=== PATIENT | male | born 1995 | race Caucasian/White ===

== ENCOUNTER 2020-12-02 16:17 | Inpatient (IN) | payer MEDICAID, SELFPAY ==
--- NOTE | ~2020-12-02 | CT_ITS ---
EXAMINATIONS: CT HEAD WITHOUT CONTRAST AND CT CERVICAL SPINE WITHOUT CONTRAST CLINICAL INFORMATION: Fall, seizure. COMPARISON: None. TECHNIQUE: Contiguous helical images of the brain were obtained without IV contrast. Contiguous helical images of the cervical spine were obtained without IV contrast. Multiplanar reconstructions were performed. DLP: 981 mGy-cm. FINDINGS: There are no pathologic extra-axial fluid collections. The lateral, third, fourth ventricles are nondilated and concordant with the appearance of the sulci. There is no evidence for acute intraparenchymal hemorrhage or infarct. There is neither mass nor mass effect. There is no shift of midline structures. The paranasal sinuses and mastoid air cells are clear. There are no osseous lesions. The cervical vertebra are in normal alignment. Disc heights and vertebral heights are well-preserved. There are no fractures. There is no prevertebral soft tissue swelling. There is no cervical lymphadenopathy. The visualized lung apices are clear. CT/CT cervical spine wo con IMPRESSION: No evidence for acute intracranial injury. No evidence for acute injury to the cervical spine. Automated exposure control (Care Dose) Adjustment of the mA and/or kv according to patient size (this includes techniques or standardized protocols for targeted exams where dose is matched to indication / reason for exam; i.e. extremities or head).
--- NOTE | ~2020-12-02 | CT_ITS ---
EXAMINATIONS: CT HEAD WITHOUT CONTRAST AND CT CERVICAL SPINE WITHOUT CONTRAST CLINICAL INFORMATION: Fall, seizure. COMPARISON: None. TECHNIQUE: Contiguous helical images of the brain were obtained without IV contrast. Contiguous helical images of the cervical spine were obtained without IV contrast. Multiplanar reconstructions were performed. DLP: 981 mGy-cm. FINDINGS: There are no pathologic extra-axial fluid collections. The lateral, third, fourth ventricles are nondilated and concordant with the appearance of the sulci. There is no evidence for acute intraparenchymal hemorrhage or infarct. There is neither mass nor mass effect. There is no shift of midline structures. The paranasal sinuses and mastoid air cells are clear. There are no osseous lesions. The cervical vertebra are in normal alignment. Disc heights and vertebral heights are well-preserved. There are no fractures. There is no prevertebral soft tissue swelling. There is no cervical lymphadenopathy. The visualized lung apices are clear. CT/CT head/brain wo con IMPRESSION: No evidence for acute intracranial injury. No evidence for acute injury to the cervical spine. Automated exposure control (Care Dose) Adjustment of the mA and/or kv according to patient size (this includes techniques or standardized protocols for targeted exams where dose is matched to indication / reason for exam; i.e. extremities or head).
--- NOTE | 2020-12-02 16:29 | ED.ALCOHOL ---
HPI - Alcohol General Chief Complaint: Seizure Stated Complaint: dt from etoh withdrawl Time Seen by Provider: 12/02/20 16:29 Source: patient and EMS Mode of arrival: EMS Limitations: no limitations History of Present Illness HPI narrative: 25 yo male who drinks a significant amount of ETOH 1-2 pints of vodka daily who has had withdrawal seizures in the past comes in after witnessed GTC seizure lasting 45 minutes with head strike and postictal state he wants to go to detox tomorrow so he stopped drinking yesterday complaint: alcohol withdrawal (seizure) Last drink: Days (ago) (1) Chronic alcohol use: Yes Previous visits for alcohol intoxication: Yes Recent trauma: Yes Associated symptoms: nausea and tremors Treatments prior to arrival: cervical collar Related Data Allergies Allergy/AdvReac Type Severity Reaction Status Date / Time No Known Allergies Allergy Verified 12/02/20 16:38 Review of Systems Review of Systems: Constitutional : No Weight loss, No Fever, No Chills, No Fatigue, No Malaise ENT/Mouth : No sore throat, No Rhinorrhea Eyes: No Eye Pain, No Swelling, No Redness Cardiovascular : No Chest Pain, No SOB, No Dyspnea on Exertion, No Orthopnea, No Edema, No Palpitations Respiratory : No Cough, No Sputum, No Wheezing Gastrointestinal : No Nausea, No Vomiting, No Diarrhea, No Constipation, No abdominal Pain, No Hematochezia, No Melena Genitourinary : No Dysuria, No Urinary Frequency, No Hematuria, Musculoskeletal : No joint pain, No Myalgias, No Joint Swelling Skin : No Skin Lesions, Pos skin abrasion Neuro : No Weakness, No Numbness, No Dizziness, No Headache, pos seizure Psych : pos Anxiety/Panic, No Depression Heme/Lymph: No Bruising, No Bleeding,No Lymphadenopathy Endocrine : No Polyuria, No Polydipsia All other systems reviewed and are negative PMFSH Past Medical History Attestation statement: The following information was validated with the patient. Medical History H/O alcohol abuse Withdrawal seizures Social History Social History (Updated 12/02/20 @ 16:43 by Stacia Burgess DO) Alcohol intake: current Alcohol intake frequency: 3 or more drinks per day Alcohol type: hard liquor Smoking Status: Never smoker Use of substances other than those prescribed or required for medical reasons: No Advance Directives: No Advance Directives Information Provided: No Physical Exam Vital Signs: Vital Signs: Last Vital Signs Temp 98.0 F 12/02/20 20:00 Pulse 75 12/02/20 20:00 Resp 16 12/02/20 20:00 BP 105/67 12/02/20 20:00 Pulse Ox 98 12/02/20 20:00 Body Mass Index 20.0 Appearance: Alert. Oriented X3. Anxious mild acute distress. Eyes: Pupils equal, round and reactive to light. ENT: Abrasions bilateral sides of tongue Neck: Normal inspection. Neck supple. in collar CVS: tachycardic heart rate and rhythm. Pulses normal. Respiratory: No respiratory distress. Breath sounds normal. Abdomen: Soft and nontender. Skin: Skin warm and dry. Normal skin color. Normal skin turgor. superficial abrasions to L hand Extremities: No lower extremity edema. No calf ttp Neuro: Oriented X 3. No motor deficit. No sensory deficit. positive tremors MDM - Alcohol MDM Narrative Medical decision making narrative: 25 yo male with hx of significant ETOH abuse and withdrawal seizures comes in after withdrawal seizure prior to arrival with headstrike will need labs, IV ativan 2mg STAT, start phenobarb protocol, hydrate, obtain electrolytes, I suspect the patient will not want to stay in the hospital but will attempt to try to admit him given ETOH withdrawal and seizure risks Lab Data Result diagrams: 12/02/20 18:11 12/02/20 18:11 Labs: Lab Results 12/02/20 12/02/20 12/02/20 Range/Units 18:11 18:11 18:11 WBC 7.7 (4.8-10.8) X10*3/uL RBC 4.41 L (4.60-5.80) X10*6/uL Hgb 15.4 (14.0-18.0) g/dl Hct 43.8 (42-52) % MCV 99.3 H (80-98) fL MCH 34.9 H (27.0-33.0) pg MCHC 35.2 (31.0-36.0) g/dl RDW 11.3 (11.0-16.0) % Plt Count 61 L (160-400) X10*3/uL MPV 9.8 (9.4-12.4) fL Immature Gran % (Auto) 0.4 (0.0-0.4) % Neut % (Auto) 82.7 H (45-73) % Lymph % (Auto) 6.9 L (20-40) % Alfalfa % (Auto) 8.8 (2-11) % Eos % (Auto) 0.0 (0-4) % Baso % (Auto) 1.2 (0-2) % Lymph # (Auto) 0.5 L (1.2-4.9) X10*3/uL [place] # (Auto) 0.7 (0.1-1.2) X10*3/uL Eos # (Auto) 0.0 (0.0-0.4) X10*3/uL Baso # (Auto) 0.1 (0.0-0.2) X10*3/uL Abs Immat Gran (auto) 0.03 (0.00-0.03) X10*3/uL Absolute Neuts (auto) 6.4 (2.0-8.3) X10*3/uL Absolute Nucleated RBC 0.000 (0.0-0.012) X10*3/uL Nucleated RBC % (auto) 0.0 (0.0-0.2) /100WBC Smear Tech's Comments VERIFIED PT 10.8 (10.8-13.0) SEC INR 0.9 (0.9-1.1) APTT 28.2 (24.1-38.0) SEC Sodium 136 (135-145) mmol/L Potassium 4.1 (3.3-5.1) mmol/L Chloride 104 (96-108) mmol/L Carbon Dioxide 20 L (22-29) mmol/L Anion Gap 16 (12-20) BUN 10 (9-16) mg/dL Creatinine 0.73 (0.5-1.4) mg/dL Estim Creat Clear Calc 138.9 Estimated GFR > 60 Random Glucose 114 (60-115) mg/dL Calcium 8.6 (8.4-10.2) mg/dL Magnesium (1.6-2.6) mg/dL Total Bilirubin (0.0-1.0) mg/dL Direct Bilirubin (0.0-0.5) mg/dL AST (5-37) U/L ALT (0-40) U/L Alkaline Phosphatase (39-117) U/L Total Creatine Kinase 405 H (38-174) U/L Total Protein (6.5-8.0) g/dL Albumin (3.5-5.0) g/dL Lipase (8-78) U/L Ethyl Alcohol mg/dL 12/02/20 12/02/20 Range/Units 18:11 18:11 WBC (4.8-10.8) X10*3/uL RBC (4.60-5.80) X10*6/uL Hgb (14.0-18.0) g/dl Hct (42-52) % MCV (80-98) fL MCH (27.0-33.0) pg MCHC (31.0-36.0) g/dl RDW (11.0-16.0) % Plt Count (160-400) X10*3/uL MPV (9.4-12.4) fL Immature Gran % (Auto) (0.0-0.4) % Neut % (Auto) (45-73) % Lymph % (Auto) (20-40) % [place] % (Auto) (2-11) % Eos % (Auto) (0-4) % Baso % (Auto) (0-2) % Lymph # (Auto) (1.2-4.9) X10*3/uL [place] # (Auto) (0.1-1.2) X10*3/uL Eos # (Auto) (0.0-0.4) X10*3/uL Baso # (Auto) (0.0-0.2) X10*3/uL Abs Immat Gran (auto) (0.00-0.03) X10*3/uL Absolute Neuts (auto) (2.0-8.3) X10*3/uL Absolute Nucleated RBC (0.0-0.012) X10*3/uL Nucleated RBC % (auto) (0.0-0.2) /100WBC Smear Tech's Comments PT (10.8-13.0) SEC INR (0.9-1.1) APTT (24.1-38.0) SEC Sodium (135-145) mmol/L Potassium (3.3-5.1) mmol/L Chloride (96-108) mmol/L Carbon Dioxide (22-29) mmol/L Anion Gap (12-20) BUN (9-16) mg/dL Creatinine (0.5-1.4) mg/dL Estim Creat Clear Calc Estimated GFR Random Glucose (60-115) mg/dL Calcium (8.4-10.2) mg/dL Magnesium 2.7 H (1.6-2.6) mg/dL Total Bilirubin 1.1 H (0.0-1.0) mg/dL Direct Bilirubin 0.4 (0.0-0.5) mg/dL AST 143 H (5-37) U/L ALT 74 H (0-40) U/L Alkaline Phosphatase 69 (39-117) U/L Total Creatine Kinase (38-174) U/L Total Protein 6.9 (6.5-8.0) g/dL Albumin 4.5 (3.5-5.0) g/dL Lipase 42 (8-78) U/L Ethyl Alcohol < 10 mg/dL ECG Data Attestation: I personally reviewed and interpreted this ECG as follows: ECG interpretation date: 12/02/20 ECG interpretation time: 18:16 Interpretation: Rate: 74 Rhythm : NSR [place]: normal Normal P waves. Normal HANS. Normal QRS complex. ST T wave : normal no acute ischemia qTC: normal prior studies: no acute ischemia The study has been interpreted contemporaneously by me. . Critical Care Time Critical Care Time Critical Care Time: Yes Total Critical Care Time: 30 Attestation: IV ativan 2mg, IVF, start of phenobarb protocol for acute ETOH withdrawal to prevent further seizures I attest to this time spent taking care of the patient Discharge Plan Discharge Clinical Impression: Alcohol withdrawal seizure Qualifiers: Complication of substance-induced condition: with unspecified complication Qualified Code(s): F10.239 - Alcohol dependence with withdrawal, unspecified
[2020-12-02 16:32] VITALS: BP 131/89; BP 140/60; PULSE 102; PULSE 120; RESP 18; TEMP 36.6; O2SAT 97
--- NOTE | 2020-12-02 16:38 | ECG_ITS ---
Test Reason : SEIZURE Blood Pressure : / mmHG Vent. Rate : 074 BPM Atrial Rate : 074 BPM P-R Int : 092 ms QRS Dur : 088 ms QT Int : 392 ms P-R-T Axes : 033 071 056 degrees QTc Int : 435 ms Sinus rhythm with short [place] Otherwise normal ECG When compared with ECG of 10-OCT-2014 15:01, Vent. rate has decreased BY 66 BPM Referred By: Stacia Burgess Electronically Signed By:Chandan Brownlee
[2020-12-02] MEDS: Magnesium Sulfate/H2O 2 GM/50 ML PIGGYBACK IV (17:05)
[2020-12-02] MEDS: 0.9 % Sodium Chloride 1,000 ML 999 ML IVCONT (17:05)
[2020-12-02] MEDS: LORazepam 2 MG/ML VIAL IVPUSH (17:05)
[2020-12-02] MEDS: PHENobarbitaL sodium 130 MG/ML VIAL 254 MG IM (17:21)
[2020-12-02 17:26] VITALS: BP 113/72; PULSE 73; RESP 14; O2SAT 97
--- NOTE | 2020-12-02 17:42 | MHC.RECOVSUP ---
Recovery Support note: Patient is a 25 year old Greek speaking male who presented to [facility] ED after having a seizure due to alcohol withdrawal. This justowriter operator met with patient to discuss substance use and treatment options. Patient reports he was planning on going to [facility] today however he was unable to make calls or get himself there due to withdrawal symptoms. Patient had planned to go tomorrow however ended up here. Patient reports he only plans to spend one night in the hospital, stating that his belongings are at an acquaintances house and that he has to go and get them. Patient reports he is staying in [place] and with relatives in the [place] area. Discussed multiple pathways to recovery with patient including AA, [facility] and MAT. Patient reports interest in getting on Antabuse after treatment. Discussed with patient that there are other medications that can help to reduce cravings and that he may benefit from those as well. Provided patient with information on the [facility], [facility], AA and [facility]. Provided patient with this justowriter operator's contact info in the event that patient has any questions about the resources discussed or if he would like additional supports.
--- NOTE | 2020-12-02 17:54 | PC.NURSE ---
report taken from sheridan watts. phleb now at bedside. vss. family at bedside.
[2020-12-02 18:00] VITALS: BP 102/72; PULSE 70; RESP 16; TEMP 36.5; O2SAT 99
[2020-12-02 18:29] LABS: Basophils Absolute Auto 0.1 X10*3/uL (0.0-0.2); Basophils Percent Auto 1.2 % (0-2); Hematocrit 43.8 % (42-52); Hemoglobin 15.4 g/dl (14.0-18.0); Imm Gran Abs Auto 0.03 X10*3/uL (0.00-0.03); Imm Gran Pct Auto 0.4 % (0.0-0.4); Lymphocytes Absolute Auto 0.5 X10*3/uL (1.2-4.9); Lymphocytes Percent Auto 6.9 % (20-40); MANUAL DIFF FLAG SCAN; Mean Corpuscular HGB Conc 35.2 g/dl (31.0-36.0); Mean Corpuscular Hemoglobin 34.9 pg (27.0-33.0); Mean Corpuscular Volume 99.3 fL (80-98); Mean Platelet Volume 9.8 fL (9.4-12.4); Monocytes Absolute Auto 0.7 X10*3/uL (0.1-1.2); Monocytes Percent Auto 8.8 % (2-11); Neutrophils Absolute Auto 6.4 X10*3/uL (2.0-8.3); Neutrophils Percent Auto 82.7 % (45-73); Red Blood Count 4.41 X10*6/uL (4.60-5.80); Red Cell Distribution Width 11.3 % (11.0-16.0); SCAN SMEAR FLAG 1; White Blood Count 7.7 X10*3/uL (4.8-10.8)
[2020-12-02 18:40] LABS: Ethanol < 10 mg/dL
[2020-12-02 18:43] LABS: Anion Gap 16 (12-20); Blood Urea Nitrogen 10 mg/dL (9-16); Calcium 8.6 mg/dL (8.4-10.2); Carbon Dioxide 20 mmol/L (22-29); Chloride 104 mmol/L (96-108); Creatinine Clr Calc Pharmacy 138.9; Estimated Glomerular Filt Rate > 60; Glucose Random 114 mg/dL (60-115); INTERNATIONAL NORM RATIO 0.9 (0.9-1.1); Potassium 4.1 mmol/L (3.3-5.1); Prothrombin Time 10.8 SEC (10.8-13.0); Sodium 136 mmol/L (135-145)
[2020-12-02 18:45] LABS: Alanine Aminotransferase 74 U/L (0-40); Albumin Level 4.5 g/dL (3.5-5.0); Alkaline Phosphatase 69 U/L (39-117); Aspartate Amino Transferase 143 U/L (5-37); Bilirubin Direct 0.4 mg/dL (0.0-0.5); Bilirubin Total 1.1 mg/dL (0.0-1.0); Lipase 42 U/L (8-78); Magnesium 2.7 mg/dL (1.6-2.6); Partial Thromboplastin Time 28.2 SEC (24.1-38.0); Total Protein 6.9 g/dL (6.5-8.0)
[2020-12-02 18:54] LABS: Platelet Count 61 X10*3/uL (160-400)
[2020-12-02 18:57] LABS: SLIDE REVIEW VERIFIED
--- NOTE | 2020-12-02 19:10 | PC.NURSE ---
PT ALERT, RESPIRATIONS EASY, N/L. SKIN W/D, RESPIRATIONS EASY, N/L. SKIN W/D.
--- NOTE | 2020-12-02 19:19 | PC.NURSE ---
MD AT BEDSIDE, C-COLLAR REMOVED AT THIS TIME. MD WANTS PT ADMITTED. PT WANTS TO GO TO REHAB TOMORROW.
[2020-12-02 20:00] VITALS: BP 105/67; PULSE 75; RESP 16; TEMP 36.7; O2SAT 98
[2020-12-02] MEDS: PHENobarbitaL sodium 130 MG/ML VIAL 191 MG IM ×2 (20:30→23:18)
--- NOTE | 2020-12-02 22:19 | P.HPHOSP_ITS ---
History of Present Illness Date of Service: 12/02/20 Chief Complaint: withdrawal seizure 25-year-old male with no significant past medical history who presents to the hospital after experiencing alcohol withdrawal seizure. Patient is postictal and also received Ativan therefore I am unable to get any history from him. According to the ED physician patient was accepted at rehab center for detoxification from alcohol and he stop drinking on his own a day prior to being admitted. Today he experienced withdrawal seizure witnessed by his family members. Brought into the hospital postictal. Had a seizure episode in the ED, received 2 mg of Ativan. I am unable to review systems as patient is postictal and unable to give any history. On arrival hemodynamically stable with no significant abnormal vitals next Except for an AST of 143, ALT of 74, CPK of 405, UDS positive for barbiturates as well as THC, head CT negative, cervical spine CT negative. Started on phenobarb protocol will be admitted for alcohol withdrawal Review of Systems Review of Systems: Yes Unobtainable due to mental status PMFSH Medical History H/O alcohol abuse Withdrawal seizures Social History (Updated 12/02/20 @ 16:43 by Stacia Burgess DO) Household Members: Significant Other Housing: Apartment Do you presently have visiting nurse or other home services: Yes Alcohol intake: current Alcohol intake frequency: 3 or more drinks per day Alcohol type: hard liquor Smoking Status: Current every day smoker Tobacco Type: Cigarette Packs Per Day: 1 Cigarettes Per Day: 20.0 Smoked in Last 30 Days: Yes Patient Interested in Nicotine Replacement: Yes Patient Given Instructions on How to Stop Smoking: No Second Hand Smoke Exposure: No Use of substances other than those prescribed or required for medical reasons: Yes Substance Use Type: Marijuana Substance Use Frequency: Occasionally Last Used Substance: Just Prior to Admission Currently Displaying Signs/Symptoms of Drug Intoxication Withdrawal: No Have you been hit, kicked, punched, or otherwise hurt by someone within the past year? If so, by whom?: No Do you feel safe in your current relationship?: No Is there a partner from a previous relationship who is making you feel unsafe now?: No Are you made to feel afraid or neglected: No Advance Directives: No Advance Directives Information Provided: No Do you have thoughts of harming others: None Do you have a plan to hurt others: No Plan Recently lost weight without trying: No Meds Allergies Allergy/AdvReac Type Severity Reaction Status Date / Time No Known Allergies Allergy Verified 12/02/20 16:38 Active Medications: Current Medications Generic Name Dose Route Start Last Admin Trade Name Freq PRN Reason Stop Dose Admin Medication 1 each 12/02/20 17:15 No Benzodiazepines MISCELLANE DAILY [facility] Pharmacy Consult 1 each 12/02/20 16:37 Consult Rx Perform Med Rec MISCELLANE ONCE PRN Consult order Phenobarbital 45 mg 12/03/20 09:00 Phenobarbital 15 Mg Tablet PO 12/04/20 21:01 BID [facility] Protocol Phenobarbital 30 mg 12/05/20 09:00 Phenobarbital 30 Mg Tablet PO 12/06/20 21:01 BID [facility] Protocol Phenobarbital 30 mg 12/07/20 09:00 Phenobarbital 30 Mg Tablet PO 12/08/20 09:01 DAILY [facility] Protocol Phenobarbital Sodium 191 mg 12/02/20 20:00 12/02/20 20:30 Phenobarbital Sodium 130 Mg/Ml Vial IM 12/02/20 23:01 191 mg Q3H [facility] Administration Protocol Physical Exam Vital Signs and Narrative: Vital Signs: Last Vital Signs Temp 98.0 F 12/02/20 20:00 Pulse 75 12/02/20 20:00 Resp 16 12/02/20 20:00 BP 105/67 12/02/20 20:00 Pulse Ox 98 12/02/20 20:00 Body Mass Index 20.0 Const: Other: Postictal Eyes: General: appearance normal, both eyes and all related structures Resp: Effort & Inspection: normal respiratory effort and able to speak in complete sentences Cardio: Rate: regular rate Rhythm: regular rhythm GI: Palpation (GI): Soft to palpation Auscultation: normal bowel sounds Skin: General skin exam: no rashes or lesions noted Extrem: General: Yes normal to inspection and Yes no pedal edema Results Labs CBC and Chem 7: 12/03/20 04:32 12/03/20 04:32 Labs: Laboratory Results - last 24 hr 12/02/20 12/02/20 12/02/20 18:11 18:11 18:11 MCV 99.3 H MCH 34.9 H MCHC 35.2 RDW 11.3 Plt Count 61 L MPV 9.8 Immature Gran % (Auto) 0.4 Neut % (Auto) 82.7 H Lymph % (Auto) 6.9 L [place] % (Auto) 8.8 Eos % (Auto) 0.0 Baso % (Auto) 1.2 Lymph # (Auto) 0.5 L [place] # (Auto) 0.7 Eos # (Auto) 0.0 Baso # (Auto) 0.1 Abs Immat Gran (auto) 0.03 Absolute Neuts (auto) 6.4 Absolute Nucleated RBC 0.000 Nucleated RBC % (auto) 0.0 Smear Tech's Comments VERIFIED PT 10.8 INR 0.9 APTT 28.2 Anion Gap 16 Estim Creat Clear Calc 138.9 Estimated GFR > 60 Random Glucose 114 Calcium 8.6 Magnesium Total Bilirubin Direct Bilirubin AST ALT Alkaline Phosphatase Total Creatine Kinase 405 H Total Protein Albumin Lipase Ethyl Alcohol 12/02/20 12/02/20 18:11 18:11 MCV MCH MCHC RDW Plt Count MPV Immature Gran % (Auto) Neut % (Auto) Lymph % (Auto) [place] % (Auto) Eos % (Auto) Baso % (Auto) Lymph # (Auto) [place] # (Auto) Eos # (Auto) Baso # (Auto) Abs Immat Gran (auto) Absolute Neuts (auto) Absolute Nucleated RBC Nucleated RBC % (auto) Smear Tech's Comments PT INR APTT Anion Gap Estim Creat Clear Calc Estimated GFR Random Glucose Calcium Magnesium 2.7 H Total Bilirubin 1.1 H Direct Bilirubin 0.4 AST 143 H ALT 74 H Alkaline Phosphatase 69 Total Creatine Kinase Total Protein 6.9 Albumin 4.5 Lipase 42 Ethyl Alcohol < 10 Imaging Radiologist's Impressions: Impressions Cervical Spine CT 12/02/20 16:37 IMPRESSION: No evidence for acute intracranial injury. No evidence for acute injury to the cervical spine. Automated exposure control (Care Dose) Adjustment of the mA and/or kv according to patient size (this includes techniques or standardized protocols for targeted exams where dose is matched to indication / reason for exam; i.e. extremities or head). Head CT 12/02/20 16:38 IMPRESSION: No evidence for acute intracranial injury. No evidence for acute injury to the cervical spine. Automated exposure control (Care Dose) Adjustment of the mA and/or kv according to patient size (this includes techniques or standardized protocols for targeted exams where dose is matched to indication / reason for exam; i.e. extremities or head). Assessment and Plan (1) Alcohol withdrawal seizure: Qualifiers: Complication of substance-induced condition: with unspecified complication Qualified Code(s): F10.239 - Alcohol dependence with withdrawal, unspecified; R56.9 - Unspecified convulsions Status: Acute 25-year-old male with history of alcohol abuse presents to the hospital after experiencing withdrawal seizure # alcohol withdrawal seizure - presents to the hospital postictal, given 2 mg of IV Ativan, start on phenobarbital - will continue phenobarbital protocol - thiamine and folic acid supplement DVT prophylaxis:lovenox
[2020-12-02 22:27] VITALS: BP 114/64; PULSE 64; RESP 16; O2SAT 100
[2020-12-02 23:31] LABS: COVID-19 Test Negative (Negative); IDNOW Serial# 9DD0AD1C
--- NOTE | 2020-12-02 23:34 | PC.NURSE ---
PT STATES IM FEELING A LITTLE SHAKY PT MEDICATED PER EMAR. REPORT BEING CALLED AT THIS TIME.
--- NOTE | 2020-12-02 23:35 | PC.NURSE ---
PT REMAINS ON MONITOR. RESPIRATIONS EASY, N/L. SKIN W/D. PT IN NAD AT THIS TIME.
[2020-12-03] VITALS (7 sets, daily range): BP systolic 103–118; BP diastolic 59–78; PULSE 58–82; RESP 16–20; TEMP 36.2–36.9; O2SAT 94–99
[2020-12-03 00:31] LABS: Amphetamine Screen Urine Not Detected (Not Detect); Barbiturates, Urine POSITIVE (Not Detect); Benzodiazepines Screen Urine Not Detected (Not Detect); Cannabinoid Screen Urine POSITIVE (Not Detect); Cocaine Screen Urine Not Detected (Not Detect); Opiate Screen Urine Not Detected (Not Detect); Phencyclidine Screen Urine Not Detected (Not Detect)
[2020-12-03] MEDS: 0.9 % Sodium Chloride Flush 3 ML SYRINGE IVFLUSH ×4 (00:36→21:00)
[2020-12-03 04:56] LABS: MANUAL DIFF FLAG NO
[2020-12-03 05:20] LABS: Anion Gap 20 (12-20); Blood Urea Nitrogen 12 mg/dL (9-16); Calcium 8.6 mg/dL (8.4-10.2); Carbon Dioxide 16 mmol/L (22-29); Chloride 104 mmol/L (96-108); Creatinine Clr Calc Pharmacy 140.8; Estimated Glomerular Filt Rate > 60; Glucose Random 97 mg/dL (60-115); Sodium 136 mmol/L (135-145)
[2020-12-03 05:48] LABS: Basophils Absolute Auto 0.1 X10*3/uL (0.0-0.2); Basophils Percent Auto 1.3 % (0-2); Eosinophils Percent Auto 0.4 % (0-4); Hematocrit 45.6 % (42-52); Hemoglobin 16.1 g/dl (14.0-18.0); Imm Gran Abs Auto 0.03 X10*3/uL (0.00-0.03); Imm Gran Pct Auto 0.4 % (0.0-0.4); Lymphocytes Absolute Auto 1.2 X10*3/uL (1.2-4.9); Lymphocytes Percent Auto 17.7 % (20-40); Mean Corpuscular HGB Conc 35.3 g/dl (31.0-36.0); Mean Corpuscular Volume 99.1 fL (80-98); Mean Platelet Volume 10.9 fL (9.4-12.4); Monocytes Absolute Auto 0.9 X10*3/uL (0.1-1.2); Monocytes Percent Auto 13.4 % (2-11); Neutrophils Absolute Auto 4.6 X10*3/uL (2.0-8.3); Neutrophils Percent Auto 66.8 % (45-73); Red Cell Distribution Width 11.3 % (11.0-16.0); White Blood Count 6.9 X10*3/uL (4.8-10.8)
[2020-12-03 05:52] LABS: Platelet Count 59 X10*3/uL (160-400)
--- NOTE | 2020-12-03 09:01 | MHC.CM.PN ---
EMR REVIEWED, PT ADMITTED W/ACUTE ETOH WITHDRAWAL, CM MET W/PT WHO IS A&O, REPORTS HE LIVES BETWEEN HIS 'S AND HIS YOUNGER BROTHERS HOMES, PT IS INDEPENDENT W/CARE, DENIES USE OF DME AND HAS NO HOME SERVICES, PT REPORTS HE SPOKE W/[employer]OW[employer] CONSULTANT AND IS GOING TO [facility] UPON D/C WITH HOSPITAL PROVIDED TRANSPORT. CM WILL CONTACT [employer] CONSULTANT TO CONFIRM PT'S PLAN. DISCHARGE PLAN: [facility], TRANSPORT TBD PCP: JENY VILLA AT [facility]
[2020-12-03] MEDS: Folic Acid 1 MG TABLET PO (09:05)
[2020-12-03] MEDS: PHENobarbitaL 15 MG TABLET 45 MG PO ×2 (09:05→20:55)
[2020-12-03] MEDS: Thiamine HCL 100 MG TABLET PO (09:05)
--- NOTE | 2020-12-03 11:29 | MHC.RECOVRN ---
T/w met with pt to f/u regarding alcohol use. Pt reports drinking 2-3 pints of 100 proof liquor for a few months. Pt had spoken with Recovery Insulation Board Coater Operator and discussed possible admission to [facility]. Pt states I was thinking of going but if I go now and they don't have a bed I'll be in [place] with nothing. T/w assured pt that d/c would not happen from [facility] if pt was at imminent risk of having a withdrawal seizure. Pt agrees to complete acute detoxification while inpatient. Pt reports ATS and [facility] admissions in the past, including admissions for opiate use. Pt reports first opiate use at age 17 and continuing for 6 years. Pt reports last heroin, IV, use 6 months ago. Pt reports longest time in recovery was 10 days downstairs and 20 days upstairs. Pt referring to ATS/[facility]. Pt is interested in medications for alcohol use disorder. Pt states I have things to take care of on the outside so if I can just get something that makes me not want to drink I'll be good. I have a really supportive family. Pt was educated regarding disulfiram, naltrexone, and acamprosate. Pt would like to discuss further with Robyn Reyez APRN. Pt reports having a place to live and plans on returning there after d/c. Pt denies questions or concerns for t/w. Case discussed with pts RN and referred to Robyn Reyez APRN.
--- NOTE | 2020-12-03 15:49 | HO.PM.IMPN ---
Subjective Subjective Date of Service: 12/03/20 Interval History: F/u seizure, alchol withdrwal. pretty shaky, no further seizure. Drink 2 to 3 bottle of vodka daily Review of Systems Gen: no fever Resp: no sob, no cough CV: no chest, no [place], no leg edema GI: No n/v, no abd pain Neuro: No confusion, tremors Physical Exam Vital Signs: Vital Signs: Last Vital Signs Temp 98.2 F 12/03/20 15:16 Pulse 74 12/03/20 15:16 Resp 16 12/03/20 15:16 BP 105/65 12/03/20 15:16 Pulse Ox 94 12/03/20 15:16 Body Mass Index 20.0 General: AO X 3, no acute distress Resp: CTA bilateral CVS: S1,S2,RRR GI: +BS, NT, no distention Skin: No rash Neuro: tremors Psych: appropriate affect Objective Data Current Medications Generic Name Dose Route Start Last Admin Trade Name Freq PRN Reason Stop Dose Admin Acetaminophen 650 mg 12/02/20 22:27 Acetaminophen 325 Mg Tablet PO Q6H PRN Pain, Mild (Pain Scale 1-3) Docusate Sodium 100 mg 12/02/20 22:27 Docusate Sodium 100 Mg Capsule PO DAILY PRN Constipation Enoxaparin Sodium 40 mg 12/02/20 22:27 12/02/20 23:19 Enoxaparin Sodium 40 Mg/0.4 Ml Syringe SUBCUT Not Given Q24H DANNY Folic Acid 1 mg 12/03/20 09:00 12/03/20 09:05 Folic Acid 1 Mg Tablet PO 1 mg DAILY DANNY Administration Hydroxyzine HCl 25 mg 12/02/20 22:27 Hydroxyzine Hcl 25 Mg Tablet PO QID PRN anxiety Medication 1 each 12/02/20 17:15 No Benzodiazepines MISCELLANE DAILY DANNY Ondansetron HCl 4 mg 12/02/20 22:27 Ondansetron Hcl 4 Mg/2 Ml Vial IVPUSH Q8H PRN Nausea and Vomiting Pharmacy Consult 1 each 12/02/20 16:37 Consult Rx Perform Med Rec MISCELLANE ONCE PRN Consult order Phenobarbital 45 mg 12/03/20 09:00 12/03/20 09:05 Phenobarbital 15 Mg Tablet PO 12/04/20 21:01 45 mg BID DANNY Administration Protocol Phenobarbital 30 mg 12/05/20 09:00 Phenobarbital 30 Mg Tablet PO 12/06/20 21:01 BID DANNY Protocol Phenobarbital 30 mg 12/07/20 09:00 Phenobarbital 30 Mg Tablet PO 12/08/20 09:01 DAILY DANNY Protocol Sodium Chloride 3 ml 12/03/20 00:00 12/03/20 09:05 0.9 % Sodium Chloride Flush 3 Ml Syringe IVFLUSH 3 ml QSHIFT DANNY Administration Thiamine HCl 100 mg 12/03/20 09:00 12/03/20 09:05 Thiamine Hcl 100 Mg Tablet PO 100 mg DAILY DANNY Administration Labs CBC & Chem 7: 12/03/20 04:32 12/03/20 04:32 Assessment and Plan (1) Alcohol withdrawal seizure: Status: Acute Assessment and Plan: 25-year-old male with history of alcohol abuse presents to the hospital after experiencing withdrawal seizure # alcohol withdrawal seizure -phenobarb protocol -seizure precaution -CARE team consult DVT prophylaxis:lovenox
[2020-12-04 03:22] VITALS: BP 106/76; PULSE 84; RESP 20; TEMP 36.4; O2SAT 99
[2020-12-04 08:00] VITALS: BP 109/72; PULSE 71; RESP 18; TEMP 35.9; O2SAT 100
[2020-12-04] MEDS: Folic Acid 1 MG TABLET PO (08:12)
[2020-12-04] MEDS: Thiamine HCL 100 MG TABLET PO (08:12)
[2020-12-04] MEDS: PHENobarbitaL 15 MG TABLET 45 MG PO (08:12)
[2020-12-04] MEDS: 0.9 % Sodium Chloride Flush 3 ML SYRINGE IVFLUSH (08:13)
--- NOTE | 2020-12-04 09:34 | P.DS_ITS ---
DS: Providers Provider Date of Service: 12/04/20 Date of admission: 12/02/20 20:25 Primary care physician: Unknown Physician Consults: 12/04/20 07:54 Consult to Care Team Routine Comment: Reason for consultation: alcohol depenence DS: Diagnosis Discharge Diagnosis (1) Alcohol withdrawal seizure: Status: Acute DS: Summary Hospital Course Hospital Course: Chief Complaint: withdrawal seizure 25-year-old male with no significant past medical history who presents to the hospital after experiencing alcohol withdrawal seizure. Patient is postictal and also received Ativan therefore I am unable to get any history from him. According to the ED physician patient was accepted at rehab center for detoxification from alcohol and he stop drinking on his own a day prior to being admitted. Today he experienced withdrawal seizure witnessed by his family members. Brought into the hospital postictal. Had a seizure episode in the ED, received 2 mg of Ativan. I am unable to review systems as patient is postictal and unable to give any history. On arrival hemodynamically stable with no significant abnormal vitals next Except for an AST of 143, ALT of 74, CPK of 405, UDS positive for barbiturates as well as THC, head CT negative, cervical spine CT negative. Started on phenobarb protocol will be admitted for alcohol withdrawal Hospital course: patient was admitted for alcohol withdrawal with alcohol withdrawal seizure and treated with Phenobarbital. He has not had any further seizure. I spoke to him at [facility] regarding the need for complete absitinence from alcohol. He doesn't drive and is instructed not to due so in light of sezure. Seizure is due to alchol withdrawal. CT of the head was negative. CARE team has seen and given him resources to help quit alcohol. Addiction service saw him and recommended Naltrexone and will arrange for outpatient follow up--He is highly motivated to do better Time Spent with Patient Time attestation: Total time spent providing and/or coordinating discharge services: Discharge coordination time: Greater than 30 minutes Physical Exam Vital Signs: Vital Signs: Last Vital Signs Temp 96.7 F L 12/04/20 08:00 Pulse 71 12/04/20 08:00 Resp 18 12/04/20 08:00 BP 109/72 12/04/20 08:00 Pulse Ox 100 12/04/20 08:00 Body Mass Index 20.0 General: AO X 3, no acute distress Resp: CTA bilateral CVS: S1,S2,RRR GI: +BS, NT, no distention Skin: No rash Neuro: motor grossly intact Psych: appropriate affect Discharge Plan Discharge Anticipated Discharge Date/Time: 12/04/20 09:31 Patient Disposition: Home, Self-Care Discharge Diagnosis: Alcohol withdrawal Referrals: Physician,Unknown [Primary Care Provider] - 1 Week Discharge Medications: New naltrexone 50 mg tablet 50 mg PO DAILY Qty: 30 RF: 0 Discharge Orders: Discharge Order (Routine); Ordered 12/04/20 Ordered By: Willie Woodard Diet: advance to usual diet Activity on Discharge: As tolerated Stand Alone Forms: Patient Portal Discharge page Care Plan Goals: To avoid alacohol and toxic effect of alcho Health Concerns: alcohol dependency Plan of Treatment: Avoid alchol Assessment: Alochol dependence with alcohol withdrawal seizure
--- NOTE | 2020-12-04 10:25 | HO.ADDICTCON ---
History of Present Illness Date of Service: 12/04/2020 Chief Complaint: Alcohol withdraw seizure Reason for Consult: Alcohol use disorder Requesting physician: Willie Woodard Discussed with referring provider: Yes Sources of Information: patient interviewed and chart reviewed HPI Narrative: Patient is a 25 year old male with alcohol use disorder. Currently medically admitted following alcohol withdrawal seizure. He had met with Recovery supprt RN and verbalized interest in MAT for AUD. Patient seen in room 377. Substance use and treatment history: -Has been drinking 1-2 pints vodka QD. He reports he has been drinking heavily for the past 4 years -No history of treatment for AUD -History of OUD. In recovery for the last 5 months. Prior to that had been using heroin QD -History of MAT (suboxone). Self tapered and detoxed at home. -Reports significant family history of addiction Medical Evaluation Reviewed: Yes Review of Systems Gastrointestinal: Denies loose stools, Denies nausea and Denies vomiting Psychiatric: Reports anxiety, Reports depression and Denies suicidal ideation Diagnostics Vital Signs (24Hr): Vital Signs - 24 hr 12/03/20 11:28 12/03/20 15:16 12/03/20 19:27 Temperature 98.2 F 98.2 F 97.2 F Pulse Rate 82 74 74 Respiratory Rate 17 16 16 Blood Pressure 112/71 105/65 109/72 Pulse Oximetry 99 94 99 12/03/20 23:11 12/04/20 03:22 12/04/20 08:00 Temperature 98.5 F 97.6 F 96.7 F L Pulse Rate 78 84 71 Respiratory Rate 20 20 18 Blood Pressure 103/59 L 106/76 109/72 Pulse Oximetry 98 99 100 Body Mass Index 20.0 Labs Results: 12/03/20 04:32 12/03/20 04:32 Labs: Laboratory Results - last 48 hr 12/02/20 12/02/20 12/02/20 18:11 18:11 18:11 WBC 7.7 RBC 4.41 L Hgb 15.4 Hct 43.8 MCV 99.3 H MCH 34.9 H MCHC 35.2 RDW 11.3 Plt Count 61 L MPV 9.8 Immature Gran % (Auto) 0.4 Neut % (Auto) 82.7 H Lymph % (Auto) 6.9 L Weston % (Auto) 8.8 Eos % (Auto) 0.0 Baso % (Auto) 1.2 Lymph # (Auto) 0.5 L Weston # (Auto) 0.7 Eos # (Auto) 0.0 Baso # (Auto) 0.1 Abs Immat Gran (auto) 0.03 Absolute Neuts (auto) 6.4 Absolute Nucleated RBC 0.000 Nucleated RBC % (auto) 0.0 Smear Tech's Comments VERIFIED PT 10.8 INR 0.9 APTT 28.2 Sodium 136 Potassium 4.1 Chloride 104 Carbon Dioxide 20 L Anion Gap 16 BUN 10 Creatinine 0.73 Estim Creat Clear Calc 138.9 Estimated GFR > 60 Random Glucose 114 Calcium 8.6 Magnesium Total Bilirubin Direct Bilirubin AST ALT Alkaline Phosphatase Total Creatine Kinase 405 H Total Protein Albumin Lipase Urine Opiates Screen Ur Barbiturates Screen Ur Phencyclidine Scrn Ur Amphetamines Screen U Benzodiazepines Scrn Urine Cocaine Screen U Marijuana (THC) Screen Ethyl Alcohol COVID-19 ([facility]) COVID-Pretty Simple 12/02/20 12/02/20 12/02/20 18:11 18:11 23:07 WBC RBC Hgb Hct MCV MCH MCHC RDW Plt Count MPV Immature Gran % (Auto) Neut % (Auto) Lymph % (Auto) Weston % (Auto) Eos % (Auto) Baso % (Auto) Lymph # (Auto) Weston # (Auto) Eos # (Auto) Baso # (Auto) Abs Immat Gran (auto) Absolute Neuts (auto) Absolute Nucleated RBC Nucleated RBC % (auto) Smear Tech's Comments PT INR APTT Sodium Potassium Chloride Carbon Dioxide Anion Gap BUN Creatinine Estim Creat Clear Calc Estimated GFR Random Glucose Calcium Magnesium 2.7 H Total Bilirubin 1.1 H Direct Bilirubin 0.4 AST 143 H ALT 74 H Alkaline Phosphatase 69 Total Creatine Kinase Total Protein 6.9 Albumin 4.5 Lipase 42 Urine Opiates Screen Ur Barbiturates Screen Ur Phencyclidine Scrn Ur Amphetamines Screen U Benzodiazepines Scrn Urine Cocaine Screen U Marijuana (THC) Screen Ethyl Alcohol < 10 COVID-19 ([facility]) Negative COVID-19 magnetic[employer]io See Note 12/02/20 12/03/20 12/03/20 23:07 04:32 04:32 WBC 6.9 RBC 4.60 Hgb 16.1 Hct 45.6 MCV 99.1 H MCH 35.0 H MCHC 35.3 RDW 11.3 Plt Count 59 L MPV 10.9 Immature Gran % (Auto) 0.4 Neut % (Auto) 66.8 Lymph % (Auto) 17.7 L Weston % (Auto) 13.4 H Eos % (Auto) 0.4 Baso % (Auto) 1.3 Lymph # (Auto) 1.2 Weston # (Auto) 0.9 Eos # (Auto) 0.0 Baso # (Auto) 0.1 Abs Immat Gran (auto) 0.03 Absolute Neuts (auto) 4.6 Absolute Nucleated RBC 0.000 Nucleated RBC % (auto) 0.0 Smear Tech's Comments PT INR APTT Sodium 136 Potassium 4.0 Chloride 104 Carbon Dioxide 16 L Anion Gap 20 BUN 12 Creatinine 0.72 Estim Creat Clear Calc 140.8 Estimated GFR > 60 Random Glucose 97 Calcium 8.6 Magnesium Total Bilirubin Direct Bilirubin AST ALT Alkaline Phosphatase Total Creatine Kinase Total Protein Albumin Lipase Urine Opiates Screen Not Detected Ur Barbiturates Screen POSITIVE H Ur Phencyclidine Scrn Not Detected Ur Amphetamines Screen Not Detected U Benzodiazepines Scrn Not Detected Urine Cocaine Screen Not Detected U Marijuana (THC) Screen POSITIVE H Ethyl Alcohol COVID-19 ([facility]) COVID-19 Clin Com Imaging Radiology Impressions: ITS Impressions Cervical Spine CT 12/02/20 16:37 IMPRESSION: No evidence for acute intracranial injury. No evidence for acute injury to the cervical spine. Automated exposure control (Care Dose) Adjustment of the mA and/or kv according to patient size (this includes techniques or standardized protocols for targeted exams where dose is matched to indication / reason for exam; i.e. extremities or head). Head CT 12/02/20 16:38 IMPRESSION: No evidence for acute intracranial injury. No evidence for acute injury to the cervical spine. Automated exposure control (Care Dose) Adjustment of the mA and/or kv according to patient size (this includes techniques or standardized protocols for targeted exams where dose is matched to indication / reason for exam; i.e. extremities or head). Mental Status Exam Mental Status Exam Patient Appearance: Appropriate Patient Orientation: Person, Place, Time and Situation Level of Consciousness: Awake, Appropriate and Alert Patient Behavior: Appropriate Mood Description: Appropriate Affect Description: Appropriate Patient Cognition Impaired: No Ability to Follow Directions: Excellent Speech Pattern: Clear Hallucinations: None Delusions: Not Present Thought Process: Goal Oriented Thought Content: positive for Intact Depressive Symptoms: Feelings of Guilt Judgement: Fair Medications Medications Current Medications Generic Name Dose Route Start Last Admin Trade Name Freq PRN Reason Stop Dose Admin Acetaminophen 650 mg 12/02/20 22:27 Acetaminophen 325 Mg Tablet PO Q6H PRN Pain, Mild (Pain Scale 1-3) Docusate Sodium 100 mg 12/02/20 22:27 Docusate Sodium 100 Mg Capsule PO DAILY PRN Constipation Enoxaparin Sodium 40 mg 12/02/20 22:27 12/03/20 20:55 Enoxaparin Sodium 40 Mg/0.4 Ml Syringe SUBCUT Not Given Q24H [facility] Folic Acid 1 mg 12/03/20 09:00 12/04/20 08:12 Folic Acid 1 Mg Tablet PO 1 mg DAILY DANNY Administration Hydroxyzine HCl 25 mg 12/02/20 22:27 Hydroxyzine Hcl 25 Mg Tablet PO QID PRN anxiety Medication 1 each 12/02/20 17:15 No Benzodiazepines MISCELLANE DAILY [facility] Ondansetron HCl 4 mg 12/02/20 22:27 Ondansetron Hcl 4 Mg/2 Ml Vial IVPUSH Q8H PRN Nausea and Vomiting Pharmacy Consult 1 each 12/02/20 16:37 Consult Rx Perform Med Rec MISCELLANE ONCE PRN Consult order Phenobarbital 45 mg 12/03/20 09:00 12/04/20 08:12 Phenobarbital 15 Mg Tablet PO 12/04/20 21:01 45 mg BID [facility] Administration Protocol Phenobarbital 30 mg 12/05/20 09:00 Phenobarbital 30 Mg Tablet PO 12/06/20 21:01 BID [facility] Protocol Phenobarbital 30 mg 12/07/20 09:00 Phenobarbital 30 Mg Tablet PO 12/08/20 09:01 DAILY [facility] Protocol Sodium Chloride 3 ml 12/03/20 00:00 12/04/20 08:13 0.9 % Sodium Chloride Flush 3 Ml Syringe IVFLUSH 3 ml QSHIFT [facility] Administration Thiamine HCl 100 mg 12/03/20 09:00 12/04/20 08:12 Thiamine Hcl 100 Mg Tablet PO 100 mg DAILY [facility] Administration Allergies Allergies Allergy/AdvReac Type Severity Reaction Status Date / Time No Known Allergies Allergy Verified 12/02/20 16:38 Assessment & Plan Assessment & Plan (1) Alcohol use disorder, severe, dependence: Status: Acute Code(s): F10.20 - Alcohol dependence, uncomplicated Recommendations: completed phenobarb withdrawal protocol--will be discharging soon Discussed medication treatment options for AUD and patient agrees to trial of Naltrexone. Dosing, side effects and goals of medication reviewed with patient Follow up appt to be scheduled at [facility] Relapse prevention ad harm reduction discussion Greater than 50% of the session was spent on counseling and/or coordination of care PMFSH Past Medical History Medical History H/O alcohol abuse Withdrawal seizures Social History Social History (Updated 12/02/20 @ 16:43 by Stacia Burgess DO) Household Members: Significant Other Housing: Apartment Do you presently have visiting nurse or other home services: Yes Alcohol intake: current Alcohol intake frequency: 3 or more drinks per day Alcohol type: hard liquor Smoking Status: Current every day smoker Tobacco Type: Cigarette Packs Per Day: 1 Cigarettes Per Day: 20.0 Smoked in Last 30 Days: Yes Patient Interested in Nicotine Replacement: Yes Patient Given Instructions on How to Stop Smoking: No Second Hand Smoke Exposure: No Use of substances other than those prescribed or required for medical reasons: Yes Substance Use Type: Marijuana Substance Use Frequency: Occasionally Last Used Substance: Just Prior to Admission Currently Displaying Signs/Symptoms of Drug Intoxication Withdrawal: No Have you been hit, kicked, punched, or otherwise hurt by someone within the past year? If so, by whom?: No Do you feel safe in your current relationship?: No Is there a partner from a previous relationship who is making you feel unsafe now?: No Are you made to feel afraid or neglected: No Advance Directives: No Advance Directives Information Provided: No Do you have thoughts of harming others: None Do you have a plan to hurt others: No Plan Recently lost weight without trying: No service: No Current occupational status: unemployed
--- NOTE | 2020-12-04 11:00 | MHC.RECOVRN ---
T/w met with pt to f/u after meeting with Robyn Reyez APRN. Pt is starting naltrexone, script sent to pts pharmacy. Pt has appt at the [facility] [place] [place] on 12/10 at 2 pm for intake. Pt understands and agrees to plan. CM aware.
--- NOTE | 2020-12-04 11:16 | MHC.CM.PN ---
PT DISCHARGING TODAY HOME SELF-CARE W/SCRIPT FOR NALTREXONE AND AN APPT AT [facility] W/DR SZYMANSKI ON 12/10/20 AT 2PM, [facility] [place] BROTHER TO [facility]SP[facility]
== END 2020-12-04 11:39 | disposition home or self-care (01) | DRG 775 ==
LOC: HO.ED 16:59 → HO.EDOVER 20:34 → HO.S3 22:15 → HO.EDOVER 22:50 → HO.S3 12-03 00:04
PROVIDERS: Admitting Provider Internal Medicine; Emergency Provider Emergency Medicine; Visit Provider Internal Medicine
DX: F10.239 Alcohol dependence with withdrawal, unspecified (principal); R56.9 Unspecified convulsions; F17.210 Nicotine dependence, cigarettes, uncomplicated; Z71.6 Tobacco abuse counseling; Z20.822 Contact with and (suspected) exposure to COVID-19
CPT/HCPCS: 36415; 70450; 72125; 80048; 80076; 80307; 80320; 82550; 83690; 83735; 85025; 85610; 85730; 87635; 93005; 96365; 96372; 96375; 99285; 99291; J2060; J2560; J3475

== ENCOUNTER → 2020-12-10 14:03 | Outpatient (BNVA) | payer MEDICAID, SELFPAY | PROVIDERS: Visit Provider Internal Medicine | DX: F11.99 Opioid use, unspecified with unspecified opioid-induced disorder (principal); F10.20 Alcohol dependence, uncomplicated | CPT/HCPCS: 80305; 99202 ==

== ENCOUNTER → 2020-12-31 13:20 | Outpatient (BNVA) | payer MEDICAID, SELFPAY | PROVIDERS: Visit Provider Internal Medicine | DX: Z51.81 Encounter for therapeutic drug level monitoring (principal) | CPT/HCPCS: 80305; 99211 ==

== ENCOUNTER → 2021-01-06 11:44 | Outpatient (BNVA) | payer MEDICAID, SELFPAY | PROVIDERS: Visit Provider Internal Medicine | DX: F10.20 Alcohol dependence, uncomplicated (principal) | CPT/HCPCS: 80305; 96372; 99212 ==

== ENCOUNTER → 2021-02-06 10:21 | Outpatient (BNVA) | payer MEDICAID, SELFPAY | PROVIDERS: Visit Provider Internal Medicine | DX: F10.20 Alcohol dependence, uncomplicated (principal) | CPT/HCPCS: 96372; 99211; J2315 ==

== ENCOUNTER 2021-03-09 16:21 | Emergency (ER) | payer MEDICAID, SELFPAY | END 2021-03-09 17:03 | disposition left against medical advice (07) | LOC: HO.ED 16:51 | PROVIDERS: Emergency Provider Emergency Medicine | DX: M54.9 Dorsalgia, unspecified (principal) ==

== ENCOUNTER 2021-03-10 02:05 | Emergency (ER) | payer MEDICAID, SELFPAY ==
[2021-03-10 02:36] VITALS: BP 112/78; PULSE 106; RESP 24; TEMP 36.9; O2SAT 98; BMI 42.7
--- NOTE | 2021-03-10 02:54 | PC.NURSE ---
Patient reports drinking a shot and 2 large beers at approx 10pm. Patient reports on vivitrol shot for history of opiate abuse.
--- NOTE | 2021-03-10 03:08 | PC.NURSE ---
Urine sample collected, & blood sample collected. Dr Levine came to bedside to evaluate patient.
--- NOTE | 2021-03-10 03:09 | ED_ITS ---
HPI - Back Pain/Injury General Chief Complaint: Back Pain/Injury Stated Complaint: lower back pain Time Seen by Provider: 03/10/21 03:03 Source: patient Mode of arrival: ambulatory Limitations: no limitations History of Present Illness HPI Narrative: Patient comes emergency room complaining of right-sided lower back pain/right flank pain for 1 month. Patient states the pain is continuous, it is worse at night whenever he turns in his bed. Patient denies dysuria, no hematuria, no fever or chills. Patient denies abdominal pain. Related Data Previous Rx's Medication Instructions Recorded naltrexone microspheres 380 mg 380 mg IM Q4W 30 Days #1 ea 12/31/20 intramuscular suspension,extended release naltrexone 50 mg tablet 50 mg PO DAILY 14 Days #14 tab 01/03/21 Allergies Allergy/AdvReac Type Severity Reaction Status Date / Time No Known Allergies Allergy Verified 02/06/21 11:08 Review of Systems Review of Systems: Constitutional : No Weight loss, No Fever, No Chills, No Night Sweats, No Fatigue, No Malaise ENT/Mouth : No Hearing loss, No Ear Pain, No Nasal Congestion, No Sinus Pain, No Hoarseness, No sore throat, No Rhinorrhea, No Swallowing Difficulty Eyes: No Eye Pain, No Swelling, No Redness, No Foreign Body, No Discharge, No Vision Changes Cardiovascular : No Chest Pain, No SOB, No Dyspnea on Exertion, No Orthopnea, No Edema, No Palpitations Respiratory : No Cough, No Sputum, No Wheezing, No Smoke Exposure, No Dyspnea Gastrointestinal : No Nausea, No Vomiting, No Diarrhea, No Constipation, No abdominal Pain, No Hematochezia, No Melena Genitourinary : no irregular bleeding, No Dysuria, No Urinary Frequency, No Hematuria, No Urinary Incontinence, No Urgency, complaining of right-sided Flank Pain, No Urinary Flow Changes, No Hesitancy Musculoskeletal : No joint pain, No Myalgias, No Joint Swelling, complaining of chronic right lower back pain Skin : No Skin Lesions, No rash Neuro : No Weakness, No Numbness, No Paresthesias, No Loss of Consciousness, No Dizziness, No Headache Psych : No Anxiety/Panic, No Depression, No SI/HI/AH/VH, No Social Issues, Heme/Lymph: No Bruising, No Bleeding,No Lymphadenopathy Endocrine : No Polyuria, No Polydipsia, No Temperature Intolerance PMFSH Past Medical History Medical History Anxiety H/O alcohol abuse History of opiate therapy Withdrawal seizures Social History Social History Household Members: Significant Other Housing: Apartment Do you presently have visiting nurse or other home services: Yes Alcohol intake: current Alcohol intake frequency: 3 or more drinks per day Alcohol type: hard liquor Cigarette Packs Per Day: 1 Cigarettes Per Day: 20.0 Second Hand Smoke Exposure: No Substance Use Type: Marijuana Advance Directives: No service: No Current occupational status: unemployed Physical Exam Vital Signs: Vital Signs: Last Vital Signs Temp 98.4 F 03/10/21 02:36 Pulse 106 H 03/10/21 02:36 Resp 24 H 03/10/21 02:36 BP 112/78 03/10/21 02:36 Pulse Ox 98 03/10/21 02:36 Body Mass Index 42.7 Appearance: Alert. Oriented X3. No acute distress. Eyes: Pupils equal, round and reactive to light. ENT: Pharynx normal. Neck: Normal inspection. Neck supple. No lymph nodes noted. No crepitus CVS: Normal heart rate and rhythm. Pulses normal. Normal S1 and S2 Respiratory: No respiratory distress. Breath sounds normal. No Wheezing. No rales Abdomen: Soft and nontender. No rigidity. No distention. Back: Pain to mild palpation over the right side of the lower back and the right flank Skin: Skin warm and dry. Normal skin color. Normal skin turgor. Extremities: No lower extremity edema. No lower extremity edema. No Lacerations. No Rash Neuro: Oriented X 3. No motor deficit. No sensory deficit. Moving all extermities. No slurred speech. Course Course Course Narrative: Patient's pain is likely musculoskeletal. Patient is clinically sober. Patient has a sober ride, who is here to pick him up Patient declined pain medication. Patient has Tylenol at home MDM - Back Pain/Injury Lab Data Result diagrams: 03/10/21 03:07 03/10/21 03:07 Labs: Lab Results 03/10/21 03/10/21 03/10/21 Range/Units 03:07 03:07 03:07 WBC 5.5 (4.8-10.8) X10*3/uL RBC 4.41 L (4.60-5.80) X10*6/uL Hgb 15.6 (14.0-18.0) g/dl Hct 43.6 (42-52) % MCV 98.9 H (80-98) fL MCH 35.4 H (27.0-33.0) pg MCHC 35.8 (31.0-36.0) g/dl RDW 12.4 (11.0-16.0) % Plt Count 84 L D (160-400) X10*3/uL MPV 9.7 (9.4-12.4) fL Immature Gran % (Auto) 0.2 (0.0-0.4) % Neut % (Auto) 45.6 (45-73) % Lymph % (Auto) 40.8 H (20-40) % [place] % (Auto) 9.9 (2-11) % Eos % (Auto) 1.3 (0-4) % Baso % (Auto) 2.2 H (0-2) % Lymph # (Auto) 2.3 (1.2-4.9) X10*3/uL [place] # (Auto) 0.6 (0.1-1.2) X10*3/uL Eos # (Auto) 0.1 (0.0-0.4) X10*3/uL Baso # (Auto) 0.1 (0.0-0.2) X10*3/uL Abs Immat Gran (auto) 0.01 (0.00-0.03) X10*3/uL Absolute Neuts (auto) 2.5 (2.0-8.3) X10*3/uL Absolute Nucleated RBC 0.000 (0.0-0.012) X10*3/uL Nucleated RBC % (auto) 0.0 (0.0-0.2) /100WBC Sodium 145 (135-145) mmol/L Potassium 4.1 (3.3-5.1) mmol/L Chloride 106 (96-108) mmol/L Carbon Dioxide 23 (22-29) mmol/L Anion Gap 20 (12-20) BUN 11 (9-16) mg/dL Creatinine 0.78 (0.5-1.4) mg/dL Estim Creat Clear Calc 200.2 Estimated GFR > 60 Random Glucose 84 (60-115) mg/dL Calcium 9.1 (8.4-10.2) mg/dL Total Bilirubin 0.3 (0.0-1.0) mg/dL AST 173 H (5-37) U/L ALT 58 H (0-40) U/L Alkaline Phosphatase 110 D (39-117) U/L Total Protein 7.4 (6.5-8.0) g/dL Albumin 4.6 (3.5-5.0) g/dL Urine Color YELLOW Urine Appearance HAZY Urine pH 6.0 (5.0-8.0) Ur Specific [place] 1.020 (1.005-1.025) Urine Protein NEG (NEG-TRACE) MG/DL Urine Glucose (UA) NEG (NEG) MG/DL Urine Ketones NEG (NEG) MG/DL Urine Blood NEG (NEG) Urine Nitrite NEG (NEG) Ur Leukocyte Esterase NEG (NEG) Urine RBC 1-4 (0) /HPF Urine WBC 1-4 (0-4) /HPF Ur Squamous Epith Cells 1+ /LPF Amorphous Sediment 3+ /LPF Urine Bacteria 1+ /LPF Urine Opiates Screen (Not Detect) Ur Barbiturates Screen (Not Detect) Ur Phencyclidine Scrn (Not Detect) Ur Amphetamines Screen (Not Detect) U Benzodiazepines Scrn (Not Detect) Urine Cocaine Screen (Not Detect) U Marijuana (THC) Screen (Not Detect) Ethyl Alcohol mg/dL 03/10/21 03/10/21 Range/Units 03:07 03:07 WBC (4.8-10.8) X10*3/uL RBC (4.60-5.80) X10*6/uL Hgb (14.0-18.0) g/dl Hct (42-52) % MCV (80-98) fL MCH (27.0-33.0) pg MCHC (31.0-36.0) g/dl RDW (11.0-16.0) % Plt Count (160-400) X10*3/uL MPV (9.4-12.4) fL Immature Gran % (Auto) (0.0-0.4) % Neut % (Auto) (45-73) % Lymph % (Auto) (20-40) % [place] % (Auto) (2-11) % Eos % (Auto) (0-4) % Baso % (Auto) (0-2) % Lymph # (Auto) (1.2-4.9) X10*3/uL [place] # (Auto) (0.1-1.2) X10*3/uL Eos # (Auto) (0.0-0.4) X10*3/uL Baso # (Auto) (0.0-0.2) X10*3/uL Abs Immat Gran (auto) (0.00-0.03) X10*3/uL Absolute Neuts (auto) (2.0-8.3) X10*3/uL Absolute Nucleated RBC (0.0-0.012) X10*3/uL Nucleated RBC % (auto) (0.0-0.2) /100WBC Sodium (135-145) mmol/L Potassium (3.3-5.1) mmol/L Chloride (96-108) mmol/L Carbon Dioxide (22-29) mmol/L Anion Gap (12-20) BUN (9-16) mg/dL Creatinine (0.5-1.4) mg/dL Estim Creat Clear Calc Estimated GFR Random Glucose (60-115) mg/dL Calcium (8.4-10.2) mg/dL Total Bilirubin (0.0-1.0) mg/dL AST (5-37) U/L ALT (0-40) U/L Alkaline Phosphatase (39-117) U/L Total Protein (6.5-8.0) g/dL Albumin (3.5-5.0) g/dL Urine Color Urine Appearance Urine pH (5.0-8.0) Ur Specific [place] (1.005-1.025) Urine Protein (NEG-TRACE) MG/DL Urine Glucose (UA) (NEG) MG/DL Urine Ketones (NEG) MG/DL Urine Blood (NEG) Urine Nitrite (NEG) Ur Leukocyte Esterase (NEG) Urine RBC (0) /HPF Urine WBC (0-4) /HPF Ur Squamous Epith Cells /LPF Amorphous Sediment /LPF Urine Bacteria /LPF Urine Opiates Screen Not Detected (Not Detect) Ur Barbiturates Screen Not Detected (Not Detect) Ur Phencyclidine Scrn Not Detected (Not Detect) Ur Amphetamines Screen Not Detected (Not Detect) U Benzodiazepines Scrn Not Detected (Not Detect) Urine Cocaine Screen Not Detected (Not Detect) U Marijuana (THC) Screen Not Detected (Not Detect) Ethyl Alcohol 342 H* mg/dL Discharge Plan Discharge Clinical Impression: Back pain Patient Disposition: Home, Self-Care Instructions: Low Back Strain (ED) Additional Instructions: Please follow-up with your primary care physician tomorrow. If you have any worsening or new symptoms, please return to the emergency room or call 911 Prescriptions: No Action Vivitrol 380 mg suspension,extended rel recon 380 mg IM Q4W 30 Days Qty: 1 RF: 5 naltrexone 50 mg tablet 50 mg PO DAILY 14 Days Qty: 14 RF: 0
[2021-03-10 03:14] LABS: MANUAL DIFF FLAG NO
[2021-03-10 03:18] LABS: Basophils Absolute Auto 0.1 X10*3/uL (0.0-0.2); Basophils Percent Auto 2.2 % (0-2); Eosinophils Absolute Auto 0.1 X10*3/uL (0.0-0.4); Eosinophils Percent Auto 1.3 % (0-4); Hematocrit 43.6 % (42-52); Hemoglobin 15.6 g/dl (14.0-18.0); Imm Gran Abs Auto 0.01 X10*3/uL (0.00-0.03); Imm Gran Pct Auto 0.2 % (0.0-0.4); Lymphocytes Absolute Auto 2.3 X10*3/uL (1.2-4.9); Lymphocytes Percent Auto 40.8 % (20-40); Mean Corpuscular HGB Conc 35.8 g/dl (31.0-36.0); Mean Corpuscular Hemoglobin 35.4 pg (27.0-33.0); Mean Corpuscular Volume 98.9 fL (80-98); Mean Platelet Volume 9.7 fL (9.4-12.4); Monocytes Absolute Auto 0.6 X10*3/uL (0.1-1.2); Monocytes Percent Auto 9.9 % (2-11); Neutrophils Absolute Auto 2.5 X10*3/uL (2.0-8.3); Neutrophils Percent Auto 45.6 % (45-73); Red Blood Count 4.41 X10*6/uL (4.60-5.80); Red Cell Distribution Width 12.4 % (11.0-16.0); White Blood Count 5.5 X10*3/uL (4.8-10.8)
[2021-03-10 03:19] LABS: Glucose Urine UA NEG (NEG); Leukocyte Esterase Urine NEG (NEG); Platelet Count 84 X10*3/uL (160-400); UACC Culture Trigger YES; Urine Blood NEG (NEG); Urine Ketones NEG (NEG); Urine Protein NEG (NEG-TRACE)
[2021-03-10 03:24] LABS: Appearance Urine HAZY; Color Urine YELLOW
[2021-03-10] MEDS: Acetaminophen 325 MG TABLET 650 MG PO (03:24)
[2021-03-10 03:25] LABS: Nitrite Urine NEG (NEG)
[2021-03-10 03:28] LABS: Bacteria Urine 1+ /LPF; Squamous Epithelial Cell Urine 1+ /LPF
[2021-03-10 03:29] LABS: Amorphous Sediment Urine 3+ /LPF
[2021-03-10 03:41] LABS: Alanine Aminotransferase 58 U/L (0-40); Albumin Level 4.6 g/dL (3.5-5.0); Alkaline Phosphatase 110 U/L (39-117); Anion Gap 20 (12-20); Aspartate Amino Transferase 173 U/L (5-37); Bilirubin Total 0.3 mg/dL (0.0-1.0); Blood Urea Nitrogen 11 mg/dL (9-16); Calcium 9.1 mg/dL (8.4-10.2); Carbon Dioxide 23 mmol/L (22-29); Chloride 106 mmol/L (96-108); Creatinine Clr Calc Pharmacy 200.2; Estimated Glomerular Filt Rate > 60; Glucose Random 84 mg/dL (60-115); Potassium 4.1 mmol/L (3.3-5.1); Sodium 145 mmol/L (135-145); Total Protein 7.4 g/dL (6.5-8.0)
[2021-03-10 03:46] LABS: Amphetamine Screen Urine Not Detected (Not Detect); Barbiturates, Urine Not Detected (Not Detect); Benzodiazepines Screen Urine Not Detected (Not Detect); Cannabinoid Screen Urine Not Detected (Not Detect); Cocaine Screen Urine Not Detected (Not Detect); Ethanol 342 mg/dL; Opiate Screen Urine Not Detected (Not Detect); Phencyclidine Screen Urine Not Detected (Not Detect)
--- NOTE | 2021-03-10 04:01 | PC.NURSE ---
PT REPORTS RIGHT LOWER BACK PAIN X 1 MONTH, DENIES URINARY SYMPTOMS. PT REPORTS THAT HE IS CURRENTLY ON VIVITROL, DRINKS DAILY.
== END 2021-03-10 04:41 | disposition home or self-care (01) ==
PROVIDERS: Emergency Provider Emergency Medicine
DX: M54.5 Low back pain (principal); F10.10 Alcohol abuse, uncomplicated; Y90.8 Blood alcohol level of 240 mg/100 ml or more; F11.20 Opioid dependence, uncomplicated; F12.90 Cannabis use, unspecified, uncomplicated
CPT/HCPCS: 36415; 80053; 80307; 81001; 82077; 85025; 87086; 99284

== ENCOUNTER → 2021-03-12 10:28 | Outpatient (BNVA) | payer MEDICAID, SELFPAY | DX: Z51.81 Encounter for therapeutic drug level monitoring (principal); F10.20 Alcohol dependence, uncomplicated; Z59.0 Homelessness | CPT/HCPCS: 80305; 96372; 99211; J2315 ==

== ENCOUNTER 2021-04-29 06:16 | Inpatient (IN) | payer MEDICAID, SELFPAY ==
[2021-04-29] VITALS (7 sets, daily range): BP systolic 106–176; BP diastolic 61–98; PULSE 47–80; RESP 14–25; TEMP 36–36.8; O2SAT 97–100; BMI 18.6
[2021-04-29 06:50] LABS: MANUAL DIFF FLAG NO
[2021-04-29] MEDS: LORazepam 2 MG/ML VIAL IVPUSH ×2 (06:52→08:00)
[2021-04-29] MEDS: 0.9 % Sodium Chloride 1,000 ML 999 ML IVCONT ×2 (06:52→09:48)
[2021-04-29 06:57] LABS: Basophils Absolute Auto 0.1 X10*3/uL (0.0-0.2); Basophils Percent Auto 1.8 % (0-2); Eosinophils Absolute Auto 0.1 X10*3/uL (0.0-0.4); Eosinophils Percent Auto 0.8 % (0-4); Hematocrit 40.8 % (42-52); Hemoglobin 14.2 g/dl (14.0-18.0); Imm Gran Abs Auto 0.03 X10*3/uL (0.00-0.03); Imm Gran Pct Auto 0.4 % (0.0-0.4); Lymphocytes Absolute Auto 1.4 X10*3/uL (1.2-4.9); Lymphocytes Percent Auto 19.7 % (20-40); Mean Corpuscular HGB Conc 34.8 g/dl (31.0-36.0); Mean Corpuscular Hemoglobin 35.6 pg (27.0-33.0); Mean Corpuscular Volume 102.3 fL (80-98); Mean Platelet Volume 8.8 fL (9.4-12.4); Monocytes Absolute Auto 0.7 X10*3/uL (0.1-1.2); Monocytes Percent Auto 9.8 % (2-11); Neutrophils Absolute Auto 4.9 X10*3/uL (2.0-8.3); Neutrophils Percent Auto 67.5 % (45-73); Platelet Count 239 X10*3/uL (160-400); Red Blood Count 3.99 X10*6/uL (4.60-5.80); Red Cell Distribution Width 13.2 % (11.0-16.0); White Blood Count 7.2 X10*3/uL (4.8-10.8)
[2021-04-29 07:04] LABS: Ethanol < 10 mg/dL
[2021-04-29 07:13] LABS: Alanine Aminotransferase 38 U/L (0-40); Albumin Level 4.4 g/dL (3.5-5.0); Alkaline Phosphatase 96 U/L (39-117); Anion Gap 16 (12-20); Aspartate Amino Transferase 108 U/L (5-37); Bilirubin Total 0.6 mg/dL (0.0-1.0); Blood Urea Nitrogen 12 mg/dL (9-16); Calcium 9.5 mg/dL (8.4-10.2); Carbon Dioxide 25 mmol/L (22-29); Chloride 106 mmol/L (96-108); Creatinine Clr Calc Pharmacy 120.7; Estimated Glomerular Filt Rate > 60; Glucose Random 87 mg/dL (60-115); Potassium 5.3 mmol/L (3.3-5.1); Sodium 142 mmol/L (135-145); Total Protein 7.1 g/dL (6.5-8.0)
--- NOTE | 2021-04-29 07:15 | ED_ITS ---
HPI - Alcohol General Chief Complaint: ETOH/Substance Use Stated Complaint: alcohol withdrawals Time Seen by Provider: 04/29/21 06:39 Source: patient Mode of arrival: ambulatory Limitations: no limitations History of Present Illness HPI narrative: A 25-year-old male presents to the emergency department coming from home. Past medical history is significant for alcohol abuse with alcohol withdrawal seizures. He states he feels has helped he is in alcohol withdrawal. He states he drinks 2 pt 100 proof vodka a day. He is currently seeking detox and is having trouble finding a facility, due to relocation. He has been in detox in the past and has had a prescription for naltrexone which he has not taken in a few weeks. His last drink was last night around 18:00. He states that this has happened to him before, and he has gone into alcohol withdrawal seizures. He states he is feeling unwell, sweaty and tremulous. All which started last night, and has progressively worsened. He has no other medical complaints at this time. He denies chest pain, abdominal pain, shortness of breath, confusion, fevers, chills, headaches, nausea and vomiting. Family history is significant for his grandmother passing away from alcohol abuse, and his mother is also a current daily drinker. complaint: alcohol withdrawal Last drink: Days (ago) (Yesterday around 6 pm ) Amount of alcohol consumed: 2 pints of 100 proof vodka a day Chronic alcohol use: Yes Previous visits for alcohol intoxication: Yes Recent trauma: No Associated symptoms: diaphoresis and tremors Treatments prior to arrival: none Related Data Previous Rx's Medication Instructions Recorded naltrexone microspheres 380 mg 380 mg IM Q4W 30 Days #1 ea 12/31/20 intramuscular suspension,extended release (Vivitrol) naltrexone 50 mg tablet 50 mg PO DAILY 14 Days #14 tab 01/03/21 Allergies Allergy/AdvReac Type Severity Reaction Status Date / Time No Known Allergies Allergy Verified 02/06/21 11:08 Review of Systems Constitutional: Constitutional: Reports as per HPI and Reports other (tremors ) Neurologic: Reports Neuro-related abnormal movements and Reports tremor(s) [facility] Past Medical History Medical History Anxiety H/O alcohol abuse History of opiate therapy Withdrawal seizures Social History Social History Household Members: Significant Other Housing: Apartment Do you presently have visiting nurse or other home services: Yes Alcohol intake: current Alcohol intake frequency: 3 or more drinks per day Alcohol type: hard liquor Patient Tobacco Use Status: Current everyday Tobacco user Cigarette Packs Per Day: 1 Cigarettes Per Day: 20.0 Second Hand Smoke Exposure: No Use of substances other than those prescribed or required for medical reasons: Yes Substance Use Type: Crack/Cocaine and Heroin Substance Use Frequency: Occasionally Last Used Substance: Unknown Any prior treatment program specific to substance use: Yes Advance Directives: No service: No Current occupational status: unemployed Physical Exam Vital Signs: Vital Signs: Last Vital Signs Temp 96.8 F 04/29/21 06:35 Pulse 80 04/29/21 08:03 Resp 18 04/29/21 08:03 BP 106/61 04/29/21 08:03 Pulse Ox 98 04/29/21 08:03 Body Mass Index 18.6 Const: General: anxious and other (tremulous) Orientation/consciousness: patient oriented x3 HENMT: Head: Yes normal to inspection Chest: Chest palpation & inspection: normal inspection of the chest and normal palpation of entire chest wall Resp: Effort & Inspection: normal respiratory effort and able to speak in complete sentences Neuro: General: patient oriented x3 MDM - Alcohol MDM Narrative Medical decision making narrative: Patient with severe alcohol withdrawal with history of same in the past with seizures started on phenobarb and Ativan will admit patient Lab Data Attestation: I reviewed the patient's lab results. Result diagrams: 04/29/21 06:44 04/29/21 06:44 Labs: Lab Results 04/29/21 04/29/21 04/29/21 Range/Units 06:44 06:44 06:44 WBC 7.2 (4.8-10.8) X10*3/uL RBC 3.99 L (4.60-5.80) X10*6/uL Hgb 14.2 (14.0-18.0) g/dl Hct 40.8 L (42-52) % MCV 102.3 H (80-98) fL MCH 35.6 H (27.0-33.0) pg MCHC 34.8 (31.0-36.0) g/dl RDW 13.2 (11.0-16.0) % Plt Count 239 D (160-400) X10*3/uL MPV 8.8 L (9.4-12.4) fL Immature Gran % (Auto) 0.4 (0.0-0.4) % Neut % (Auto) 67.5 (45-73) % Lymph % (Auto) 19.7 L (20-40) % [place] % (Auto) 9.8 (2-11) % Eos % (Auto) 0.8 (0-4) % Baso % (Auto) 1.8 (0-2) % Lymph # (Auto) 1.4 (1.2-4.9) X10*3/uL [place] # (Auto) 0.7 (0.1-1.2) X10*3/uL Eos # (Auto) 0.1 (0.0-0.4) X10*3/uL Baso # (Auto) 0.1 (0.0-0.2) X10*3/uL Abs Immat Gran (auto) 0.03 (0.00-0.03) X10*3/uL Absolute Neuts (auto) 4.9 (2.0-8.3) X10*3/uL Absolute Nucleated RBC 0.000 (0.0-0.012) X10*3/uL Nucleated RBC % (auto) 0.0 (0.0-0.2) /100WBC Sodium 142 (135-145) mmol/L Potassium 5.3 H D (3.3-5.1) mmol/L Chloride 106 (96-108) mmol/L Carbon Dioxide 25 (22-29) mmol/L Anion Gap 16 (12-20) BUN 12 (9-16) mg/dL Creatinine 0.78 (0.5-1.4) mg/dL Estim Creat Clear Calc 120.7 Estimated GFR > 60 Random Glucose 87 (60-115) mg/dL Calcium 9.5 (8.4-10.2) mg/dL Phosphorus 4.4 (2.7-4.5) mg/dL Magnesium 1.9 (1.6-2.6) mg/dL Total Bilirubin 0.6 (0.0-1.0) mg/dL AST 108 H (5-37) U/L ALT 38 (0-40) U/L Alkaline Phosphatase 96 (39-117) U/L Total Protein 7.1 (6.5-8.0) g/dL Albumin 4.4 (3.5-5.0) g/dL Ethyl Alcohol < 10 mg/dL Discharge Plan Discharge Clinical Impression: Alcohol withdrawal syndrome Qualifiers: Complication of substance-induced condition: uncomplicated Qualified Code(s): F10.230 - Alcohol dependence with withdrawal, uncomplicated Patient Disposition: Admitted As Inpatient
--- NOTE | 2021-04-29 07:15 | ECG_ITS ---
Test Reason : WITHDRAWAL Blood Pressure : / mmHG Vent. Rate : 065 BPM Atrial Rate : 065 BPM P-R Int : 120 ms QRS Dur : 078 ms QT Int : 480 ms P-R-T Axes : 041 068 062 degrees QTc Int : 499 ms Sinus rhythm with marked sinus arrhythmia Prolonged QT Abnormal ECG When compared with ECG of 02-DEC-2020 18:02, QT has lengthened Referred By: Mohinder Curry Electronically Signed By:NEERAJ LIU
[2021-04-29 07:33] LABS: Magnesium 1.9 mg/dL (1.6-2.6); Phosphorus 4.4 mg/dL (2.7-4.5)
[2021-04-29] MEDS: Thiamine HCL 100 MG TABLET PO (07:48)
[2021-04-29] MEDS: PHENobarbitaL sodium 130 MG/ML VIAL 234 MG IM (07:48)
[2021-04-29] MEDS: Folic Acid 1 MG TABLET PO (07:48)
[2021-04-29] MEDS: Famotidine/PF 20 MG/2 ML VIAL IVPUSH (07:48)
--- NOTE | 2021-04-29 09:17 | PM.IMHP ---
History of Present Illness Date of Service: 04/29/21 Chief Complaint: Tremors This is a 25-year-old male who endorses no significant past medical history other than heavy daily alcohol use who presents to the hospital with complaints of feeling ?withdrawal?. Patient reports that he typically drinks 2 pt of 100 proof vodka daily and had his last drink on the evening prior to arrival. He reports that he started feeling anxiety, tremors, sweating and just overall not feeling well so he presented to the emergency room. Patient endorses a prior history of alcohol withdrawal seizure as well as delirium tremens. He reports that he has desires to quit and would like to talk to a social work lecturer. To the emergency room he was noted to be visibly tremulous with perspiration and tachypnea. He underwent basic workup which included showed AST of 108 and ALT of 38. His potassium was slightly elevated at 5.3. He was initiated on the phenobarb protocol and admission was requested. Review of Systems Review of Systems: +tremors, shakes, anxiety, nausea, sweating Yes all other systems are reviewed and are negative [facility] Medical History Anxiety H/O alcohol abuse History of opiate therapy Withdrawal seizures Pertinent family history: Denies any [facility] Surgical History (Updated 04/29/21 @ 10:40 by Yamil Mullen MD) No significant past surgical history Social History Household Members: Significant Other Housing: Apartment Do you presently have visiting nurse or other home services: Yes Alcohol intake: current Alcohol intake frequency: 3 or more drinks per day Alcohol type: hard liquor Patient Tobacco Use Status: Current everyday Tobacco user Cigarette Packs Per Day: 1 Cigarettes Per Day: 20.0 Second Hand Smoke Exposure: No Use of substances other than those prescribed or required for medical reasons: Yes Substance Use Type: Crack/Cocaine and Heroin Substance Use Frequency: Occasionally Last Used Substance: Unknown Any prior treatment program specific to substance use: Yes Advance Directives: No service: No Current occupational status: unemployed Meds Allergies Allergy/AdvReac Type Severity Reaction Status Date / Time No Known Allergies Allergy Verified 02/06/21 11:08 Active Medications: Current Medications Generic Name Dose Route Start Last Admin Trade Name Freq PRN Reason Stop Dose Admin Medication 1 each 04/29/21 07:45 No Benzodiazepines MISCELLANE DAILY [facility] Pharmacy Consult 1 each 04/29/21 07:12 Consult Rx Etoh Phenob Dosing MISCELLANE ONCE PRN Consult order Protocol Pharmacy Consult 1 each 04/29/21 08:37 Consult Rx Perform Med Rec MISCELLANE ONCE PRN Consult order Phenobarbital 45 mg 04/29/21 21:00 Phenobarbital 15 Mg Tablet PO 05/01/21 09:01 BID [facility] Protocol Phenobarbital 30 mg 05/01/21 21:00 Phenobarbital 30 Mg Tablet PO 05/03/21 09:01 BID [facility] Protocol Phenobarbital 30 mg 05/04/21 09:00 Phenobarbital 30 Mg Tablet PO 05/05/21 09:01 DAILY [facility] Protocol Phenobarbital Sodium 175.5 mg 04/29/21 11:00 Phenobarbital Sodium 130 Mg/Ml Vial IM 04/29/21 14:01 Q3H [facility] Protocol Physical Exam Vital Signs and Narrative: Vital Signs: Last Vital Signs Temp 96.8 F 04/29/21 06:35 Pulse 80 04/29/21 08:03 Resp 18 04/29/21 08:03 BP 106/61 04/29/21 08:03 Pulse Ox 98 04/29/21 08:03 Body Mass Index 18.6 Const: Other: Constitutional - Awake and Alert, +tremors Eyes - PERRLA, EOMI Cardiovascular - S1S2, RRR, No edema Respiratory - Normal lung expansion, Normal respiratory effort, No respiratory distress, CTA bilaterally Gastrointestinal - NT / ND; +BS; No rebound or guarding - No CVA tenderness Extremities - no calf tenderness bilaterally, no swelling Musculoskeletal - Normal inspection, normal ROM Skin - Warm/Dry Neurological - Alert & oriented x3, No focal deficit; +tremors Psychological - Appropriate affect Results Labs CBC and Chem 7: 04/29/21 06:44 04/29/21 06:44 Labs: Laboratory Results - last 24 hr 04/29/21 04/29/21 04/29/21 06:44 06:44 06:44 MCV 102.3 H MCH 35.6 H MCHC 34.8 RDW 13.2 Plt Count 239 D MPV 8.8 L Immature Gran % (Auto) 0.4 Neut % (Auto) 67.5 Lymph % (Auto) 19.7 L [place] % (Auto) 9.8 Eos % (Auto) 0.8 Baso % (Auto) 1.8 Lymph # (Auto) 1.4 [place] # (Auto) 0.7 Eos # (Auto) 0.1 Baso # (Auto) 0.1 Abs Immat Gran (auto) 0.03 Absolute Neuts (auto) 4.9 Absolute Nucleated RBC 0.000 Nucleated RBC % (auto) 0.0 Anion Gap 16 Estim Creat Clear Calc 120.7 Estimated GFR > 60 Random Glucose 87 Calcium 9.5 Phosphorus 4.4 Magnesium 1.9 Total Bilirubin 0.6 AST 108 H ALT 38 Alkaline Phosphatase 96 Total Protein 7.1 Albumin 4.4 Ethyl Alcohol < 10 Assessment and Plan (1) Alcohol withdrawal syndrome: Qualifiers: Complication of substance-induced condition: uncomplicated Qualified Code(s): F10.230 - Alcohol dependence with withdrawal, uncomplicated Status: Acute This is a 25 yo M with a PMH of heavy alcohol abuse and dependence with prior alcohol withdrawal seizures and DTs who presents to the hospital with complaints of anxiety, nausea, tremors. His presentation is concerning for alcohol withdrawal. He will be admitted for further treatment. 1. Alcohol withdrawal has been started on phenobarb, will continue monitor lytes Thiamin / Folate Care team consult cessation has been strongly encouraged and advised 2. HyperK lokelma x 1 trend 3. Transaminits due to alcohol abuse trend 4. Tobacco use NRT cessation advised Full Code DVT pptx, Lovenox Quality Stroke Does the patient have a stroke diagnosis?: No VTE Prior VTE?: No VTE Risk Level:: Medical - moderate - high VTE Device Contraindication: Treatment Not Indicated VTE Drug Contraindication: N/A - Med Ordered
--- NOTE | 2021-04-29 09:46 | PHA.MEDREC ---
Pharmacy Consult ? Medication Reconciliation Pharmacy has completed the medication reconciliation. Completed base on medical records and outpatient pharmacy fill history. Patient on Phenobarbital protocol so he is unable to communicate at this time. Jane Herring, PharmD [phone]
[2021-04-29] MEDS: PHENobarbitaL sodium 130 MG/ML VIAL 175.5 MG IM ×2 (12:27→15:58)
[2021-04-29] MEDS: Sodium Zirconium Cyclosilicate 10 GM POWD.PACK PO (12:27)
[2021-04-29] MEDS: Enoxaparin Sodium 40 MG/0.4 ML SYRINGE SUBCUT (12:32)
[2021-04-29] MEDS: 0.9 % Sodium Chloride Flush 3 ML SYRINGE IVFLUSH (15:58)
--- NOTE | 2021-04-29 18:01 | PC.NURSE ---
Pt presents to the unit by way of the ED. He is alert/oriented, speaks in full sentences, skin pwdi, and he has been in nad. Pt is on phenonarbital protocol, and has shown no signs of etoh withdrawal. Currently resting quietly.
[2021-04-29] MEDS: PHENobarbitaL 15 MG TABLET 45 MG PO (21:14)
[2021-04-29 22:54] LABS: Appearance Urine CLEAR; Color Urine YELLOW; Glucose Urine UA NEG (NEG); Leukocyte Esterase Urine NEG (NEG); Nitrite Urine NEG (NEG); Specific Gravity - Urine 1.015 (1.005-1.025); Urine Blood NEG (NEG); Urine Ketones NEG (NEG); Urine Protein NEG (NEG-TRACE)
[2021-04-29 23:15] LABS: Amphetamine Screen Urine Not Detected (Not Detect); Barbiturates, Urine POSITIVE (Not Detect); Benzodiazepines Screen Urine Not Detected (Not Detect); Cannabinoid Screen Urine Not Detected (Not Detect); Cocaine Screen Urine POSITIVE (Not Detect); Fentanyl, urine POSITIVE (Not Detect); Opiate Screen Urine Not Detected (Not Detect); Phencyclidine Screen Urine Not Detected (Not Detect)
[2021-04-29 23:25] LABS: COVID-19 Test Negative (Negative); IDNOW Serial# 9DD0AD1C
[2021-04-30 04:00] VITALS: BP 101/67; PULSE 55; RESP 21; TEMP 37.1; O2SAT 100
[2021-04-30 07:32] LABS: Anion Gap 16 (12-20); Blood Urea Nitrogen 7 mg/dL (9-16); Calcium 8.9 mg/dL (8.4-10.2); Carbon Dioxide 22 mmol/L (22-29); Chloride 103 mmol/L (96-108); Creatinine Clr Calc Pharmacy 138.5; Estimated Glomerular Filt Rate > 60; Glucose Random 144 mg/dL (60-115); Potassium 4.7 mmol/L (3.3-5.1); Sodium 136 mmol/L (135-145)
[2021-04-30 07:36] VITALS: BP 120/85; PULSE 55; RESP 15; TEMP 36.3; O2SAT 100
[2021-04-30] MEDS: PHENobarbitaL 15 MG TABLET 45 MG PO (07:37)
[2021-04-30] MEDS: Folic Acid 1 MG TABLET PO (07:38)
[2021-04-30] MEDS: Thiamine HCL 100 MG TABLET PO (07:38)
[2021-04-30] MEDS: 0.9 % Sodium Chloride Flush 3 ML SYRINGE IVFLUSH (07:38)
[2021-04-30 08:10] LABS: Alanine Aminotransferase 32 U/L (0-40); Albumin Level 4.1 g/dL (3.5-5.0); Alkaline Phosphatase 96 U/L (39-117); Aspartate Amino Transferase 80 U/L (5-37); Bilirubin Direct 0.2 mg/dL (0.0-0.5); Bilirubin Total 0.9 mg/dL (0.0-1.0)
--- NOTE | 2021-04-30 09:22 | MHC.CM.PN ---
pt lives alone in his apt. he reports that he is independent in his care. he does have freinds that live in the area and will help him c a ride home at [place]. pt would benefit from a care team consult for which there is an order in place. dc plan will be home no svcs p care team consult and any interventions related to etoh cessation they assist with. cm to cont. to follow.
--- NOTE | 2021-04-30 10:30 | MHC.RECOVRN ---
25 year old male presented to [facility] ED, ambulatory, on 04/29 at 0630 due to Patient seeking detox.? Hx of drinking 2 pints of 100 proof vodka every day for 1 year.? Patient is quite tremulous, diaphoretic and has history of seizures.? 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 Subsequently, pt admitted for management of alcohol withdrawal symptoms.? T/w met with pt in 273 to discuss substance use. Pt reports drinking 2 pints of 100 proof vodka daily. 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 Pt states I was just having a bad night and it was there so I did it. Pt reports prior to use, pt has been in recovery from opiates x 1 year after using for 4-5 years.? Pt reports significant stress in life currently is housing, as pt can no longer stay at step father's house in [place]. Pt is able to stay at an apartment his ex-girlfriend has in [place]. However, this apartment is vacant and does not have electricity. Pt reports neighbors let pt charge his phone, watch tv, and eat at their apartment. Pt currently does not have transportation and reports using public transportation is difficult due to needing PVTA and FRTA?to return to [place]. T/w informed pt that Lyft could be provided to bring pt back to [place].? Pt has been in programs many times, including [facility]. Pt has been seen at the [facility] and has received Vivitrol, last injection 03/12. Pt reports this was helpful but is unable to make it to appointments due to transportation. Pt would like to restart naltrexone and obtain a provider closer to where pt is staying.? Pt has therapist through [facility] and plans to continue via telehealth after dc from [facility].? Pt denies questions or concerns for t/w. Pt provided with t/w card if questions arise. Case discussed with Robyn Reyez APRN, as well as pts RN.?
--- NOTE | 2021-04-30 11:04 | PM.DS ---
DS: Providers Provider Date of Service: 04/30/21 Date of admission: 04/29/21 09:14 Primary care physician: Unknown Physician Consults: 04/29/21 10:43 Consult to Care Team Routine Comment: Reason for consultation: alcohol abuse, interested in treatment Attending physician on discharge: Yamil Mullen Discharging clinician: Pilar Foy DS: Diagnosis Discharge Diagnosis (1) Alcohol withdrawal syndrome: Status: Acute (2) Hyperkalemia: Status: Acute (3) Transaminitis: Status: Acute DS: Summary Hospital Course Hospital Course: HP as per admitting provider This is a 25-year-old male who endorses no significant past medical history other than heavy daily alcohol use who presents to the hospital with complaints of feeling ?withdrawal?.? Patient reports that he typically drinks 2 pt of 100 proof vodka daily and had his last drink on the evening prior to arrival.? He reports that he started feeling anxiety, tremors, sweating and just overall not feeling well so he presented to the emergency room. Patient endorses a prior history of alcohol withdrawal seizure as well as delirium tremens.? He reports that he has desires to quit and would like to talk to a social secretary.? To the emergency room he was noted to be visibly tremulous with perspiration and tachypnea.? He underwent basic workup which included showed AST of 108 and ALT of 38. His potassium was slightly elevated at 5.3.? He was initiated on the phenobarb protocol and admission was requested . Alcohol withdrawal . Patient presented with complaints of withdrawal he typically drinks 2 pt of 100 proof vodka daily. He reported feeling anxious, tremors and sweatiness. He was treated with phenobarbital, thiamine, folic acid. His appetite is good and he is eating well. His symptoms of withdrawal have resolved. He was seen by the care team. He should follow-up with his primary care provider for outpatient assistance with alcohol cessation. Hyperkalemia. Resolved fairly quickly with Kayexalate. Back to baseline. Transaminitis. Likely related to alcohol abuse. Trended down. Time Spent with Patient Time attestation: Total time spent providing and/or coordinating discharge services: Discharge coordination time: Greater than 30 minutes Quality: Stroke Does the patient have a stroke diagnosis?: No Physical Exam Vital Signs: Vital Signs: Last Vital Signs Temp 97.4 F 04/30/21 07:36 Pulse 55 04/30/21 07:36 Resp 15 04/30/21 07:36 BP 120/85 04/30/21 07:36 Pulse Ox 100 04/30/21 07:36 Body Mass Index 18.6 Appearing in no acute distress head is normocephalic atraumatic eyes pupils are PERRLA sclera is anicteric mouth throat mucous membranes are intact and moist neck is supple no lymphadenopathy, no JVD noted lung sounds are clear to auscultation heart regular rate rhythm, clear S1, S2 positive bowel sounds, abdomen is soft, nontender neuro patient is alert x3, no focal deficits DS: Data Data Completed and Pending Completed studies during hospitalization [Text1]: Procedures Detoxification Services for Substance Abuse Treatment (12/02/20) Labs on day of discharge: Laboratory Results - last 24 hr 04/29/21 04/29/21 04/29/21 22:23 22:23 22:39 Sodium Potassium Chloride Carbon Dioxide Anion Gap BUN Creatinine Estim Creat Clear Calc Estimated GFR Random Glucose Calcium Total Bilirubin Direct Bilirubin AST ALT Alkaline Phosphatase Total Protein Albumin Urine Color YELLOW Urine Appearance CLEAR Urine pH 7.0 Ur Specific [place] 1.015 Urine Protein NEG Urine Glucose (UA) NEG Urine Ketones NEG Urine Blood NEG Urine Nitrite NEG Ur Leukocyte Esterase NEG Urine Opiates Screen Not Detected Urine Fentanyl Screen POSITIVE H Ur Barbiturates Screen POSITIVE H Ur Phencyclidine Scrn Not Detected Ur Amphetamines Screen Not Detected U Benzodiazepines Scrn Not Detected Urine Cocaine Screen POSITIVE H U Marijuana (THC) Screen Not Detected COVID-19 ([facility]) Negative COVID-19 Clin Com See Note 04/30/21 06:59 Sodium 136 Potassium 4.7 Chloride 103 Carbon Dioxide 22 Anion Gap 16 BUN 7 L Creatinine 0.68 Estim Creat Clear Calc 138.5 Estimated GFR > 60 Random Glucose 144 H D Calcium 8.9 D Total Bilirubin 0.9 Direct Bilirubin 0.2 AST 80 H ALT 32 Alkaline Phosphatase 96 Total Protein 7.0 Albumin 4.1 Urine Color Urine Appearance Urine pH Ur Specific [place] Urine Protein Urine Glucose (UA) Urine Ketones Urine Blood Urine Nitrite Ur Leukocyte Esterase Urine Opiates Screen Urine Fentanyl Screen Ur Barbiturates Screen Ur Phencyclidine Scrn Ur Amphetamines Screen U Benzodiazepines Scrn Urine Cocaine Screen U Marijuana (THC) Screen COVID-19 ([facility]) COVID-19 Clin Com Discharge Plan Discharge Anticipated Discharge Date/Time: 04/30/21 11:01 Patient Disposition: Home, Self-Care Discharge Diagnosis: alcohol withdrawal hyperkalemia Transaminitis Referrals: Physician,Unknown [Primary Care Provider] - 1 Week Discharge Medications: New folic acid 1 mg Tablet 1 mg PO DAILY Qty: 30 RF: 0 thiamine mononitrate (vit B1) 100 mg Tablet 100 mg PO DAILY Qty: 30 RF: 0 Continued Vivitrol 380 mg suspension,extended rel recon 380 mg IM Q4W 30 Days Qty: 1 RF: 5 Discharge Orders: Discharge Order (Routine); Ordered 04/30/21 Ordered By: Pilar Foy Diet: advance to usual diet Activity on Discharge: As tolerated Stand Alone Forms: Patient Portal Discharge page Care Plan Goals: Stop drinking alcohol Health Concerns: Alcohol withdrawal Hyperkalemia Transaminitis Plan of Treatment: Follow up with primary care provider as needed Reach out for assisted regarding alcohol abuse Assessment: See discharge summary
--- NOTE | 2021-04-30 11:59 | MHC.CARE ---
CARE Team meets with patient in order to conduct risk assessment and engage pt in a discussion about outpatient supports, Pt is not currently in psychiatric crisis, denies SI/HI/AVH. He denies being on any psychiatric medications, no hx of suicide attempts or inpt hospitalizations. Mood is upbeat and affect is full. He speaks clearly and makes good eye contact. He identifies feeling anxious about how he will get home, as he is currently residing in [place], [place]. CARE Team will work to provide pt with a ride home. Pt is no longer seeking detox, and plans to follow up with his outpatient providers. Pt sees Yaquelin (could not recall last name) at [facility]. He has an upcoming appointment at [facility] in [place], [place] for vivitrol injection, which he identifies as being very helpful in his recovery. Pt was born and raised in [place], [place], however feels that he is doing better and is well support in [place]. Pt is interested in getting a manager of disaster recovery, as this has been helpful in the past. CARE Team will make a referral for pt to [facility] in [place] for recovery coaching. Plan is communicated to RN and Pilar Alvarez NP. Plan is for pt to be discharged this afternoon.
[2021-04-30] MEDS: Naloxone HCl Nasal TAKE HOME 4 MG SPRAY NOSTRILALT (12:01)
--- NOTE | 2021-04-30 14:42 | HO.ADDICTCON ---
History of Present Illness Date of Service: 04/30/2021 Chief Complaint: alcohol withdrawals Reason for Consult: Alcohol use disorder Requesting physician: Pilar Foy Sources of Information: patient interviewed and chart reviewed HPI Narrative: Patient is a 25 year old male currently medically admitted with alcohol withdrawal Patient was started on Naltrexone in November of 2020 at the [facility], but missed his March injection. He states that he has had to move to [place] due to various issues and this resulted in a an issue with transportation to [facility]. He has since started drinking more and also reported using heroin IN btwn 3-4 days per week. Patient somewhat guarded regarding discussion on opioids-minimizing use. [facility] notes reviewed and patient reported history of MOUD with both methadone and suboxone. At this time declines MOUD--except for naltrexone, which he felt was helpful with AUD and OUD. Denies any withdrawal symptoms, including nausea, vomiting, loose stools, yawning, body aches he is requesting naltrexone rx before he is discharged Past Psychiatric History: denies Medical Evaluation Reviewed: Yes Personal & Social History: Experiencing homelessness, but has been staying in an empty apt in [place] that belongs to a friend Review of Systems Review of Systems as per HPI Diagnostics Vital Signs (24Hr): Vital Signs - 24 hr 04/29/21 15:58 04/29/21 19:28 04/29/21 23:31 Temperature 97.6 F 97.9 F Pulse Rate 54 47 L 54 Respiratory Rate 18 25 H 19 Blood Pressure 106/74 176/98 H 116/84 Pulse Oximetry 100 99 99 04/30/21 04:00 04/30/21 07:36 Temperature 98.7 F 97.4 F Pulse Rate 55 55 Respiratory Rate 21 H 15 Blood Pressure 101/67 120/85 Pulse Oximetry 100 100 Body Mass Index 18.6 Labs Results: 04/29/21 06:44 04/30/21 06:59 Labs: Laboratory Results - last 48 hr 04/29/21 04/29/21 04/29/21 06:44 06:44 06:44 WBC 7.2 RBC 3.99 L Hgb 14.2 Hct 40.8 L MCV 102.3 H MCH 35.6 H MCHC 34.8 RDW 13.2 Plt Count 239 D MPV 8.8 L Immature Gran % (Auto) 0.4 Neut % (Auto) 67.5 Lymph % (Auto) 19.7 L [place] % (Auto) 9.8 Eos % (Auto) 0.8 Baso % (Auto) 1.8 Lymph # (Auto) 1.4 [place] # (Auto) 0.7 Eos # (Auto) 0.1 Baso # (Auto) 0.1 Abs Immat Gran (auto) 0.03 Absolute Neuts (auto) 4.9 Absolute Nucleated RBC 0.000 Nucleated RBC % (auto) 0.0 Sodium 142 Potassium 5.3 H D Chloride 106 Carbon Dioxide 25 Anion Gap 16 BUN 12 Creatinine 0.78 Estim Creat Clear Calc 120.7 Estimated GFR > 60 Random Glucose 87 Calcium 9.5 Phosphorus 4.4 Magnesium 1.9 Total Bilirubin 0.6 Direct Bilirubin AST 108 H ALT 38 Alkaline Phosphatase 96 Total Protein 7.1 Albumin 4.4 Urine Color Urine Appearance Urine pH Ur Specific [place] Urine Protein Urine Glucose (UA) Urine Ketones Urine Blood Urine Nitrite Ur Leukocyte Esterase Urine Opiates Screen Urine Fentanyl Screen Ur Barbiturates Screen Ur Phencyclidine Scrn Ur Amphetamines Screen U Benzodiazepines Scrn Urine Cocaine Screen U Marijuana (THC) Screen Ethyl Alcohol < 10 COVID-19 ([facility]) COVID-19 [employer] 04/29/21 04/29/21 04/29/21 22:23 22:23 22:39 WBC RBC Hgb Hct MCV MCH MCHC RDW Plt Count MPV Immature Gran % (Auto) Neut % (Auto) Lymph % (Auto) [place] % (Auto) Eos % (Auto) Baso % (Auto) Lymph # (Auto) [place] # (Auto) Eos # (Auto) Baso # (Auto) Abs Immat Gran (auto) Absolute Neuts (auto) Absolute Nucleated RBC Nucleated RBC % (auto) Sodium Potassium Chloride Carbon Dioxide Anion Gap BUN Creatinine Estim Creat Clear Calc Estimated GFR Random Glucose Calcium Phosphorus Magnesium Total Bilirubin Direct Bilirubin AST ALT Alkaline Phosphatase Total Protein Albumin Urine Color YELLOW Urine Appearance CLEAR Urine pH 7.0 Ur Specific [place] 1.015 Urine Protein NEG Urine Glucose (UA) NEG Urine Ketones NEG Urine Blood NEG Urine Nitrite NEG Ur Leukocyte Esterase NEG Urine Opiates Screen Not Detected Urine Fentanyl Screen POSITIVE H Ur Barbiturates Screen POSITIVE H Ur Phencyclidine Scrn Not Detected Ur Amphetamines Screen Not Detected U Benzodiazepines Scrn Not Detected Urine Cocaine Screen POSITIVE H U Marijuana (THC) Screen Not Detected Ethyl Alcohol COVID-19 ([facility]) Negative COVID-19 Clin Com See Note 04/30/21 06:59 WBC RBC Hgb Hct MCV MCH MCHC RDW Plt Count MPV Immature Gran % (Auto) Neut % (Auto) Lymph % (Auto) [place] % (Auto) Eos % (Auto) Baso % (Auto) Lymph # (Auto) [place] # (Auto) Eos # (Auto) Baso # (Auto) Abs Immat Gran (auto) Absolute Neuts (auto) Absolute Nucleated RBC Nucleated RBC % (auto) Sodium 136 Potassium 4.7 Chloride 103 Carbon Dioxide 22 Anion Gap 16 BUN 7 L Creatinine 0.68 Estim Creat Clear Calc 138.5 Estimated GFR > 60 Random Glucose 144 H D Calcium 8.9 D Phosphorus Magnesium Total Bilirubin 0.9 Direct Bilirubin 0.2 AST 80 H ALT 32 Alkaline Phosphatase 96 Total Protein 7.0 Albumin 4.1 Urine Color Urine Appearance Urine pH Ur Specific [place] Urine Protein Urine Glucose (UA) Urine Ketones Urine Blood Urine Nitrite Ur Leukocyte Esterase Urine Opiates Screen Urine Fentanyl Screen Ur Barbiturates Screen Ur Phencyclidine Scrn Ur Amphetamines Screen U Benzodiazepines Scrn Urine Cocaine Screen U Marijuana (THC) Screen Ethyl Alcohol COVID-19 ([facility]) COVID-19 Clin Com Mental Status Exam Mental Status Exam Patient Appearance: Appropriate Patient Orientation: Person, Place, Time and Situation Level of Consciousness: Awake, Appropriate and Alert Patient Behavior: Appropriate Mood Description: Appropriate Patient Cognition Impaired: No Thought Process: Intact Thought Content: positive for Intact Judgement: Fair Medications Allergies Allergies Allergy/AdvReac Type Severity Reaction Status Date / Time No Known Allergies Allergy Verified 02/06/21 11:08 Assessment & Plan Assessment & Plan (1) Alcohol use disorder, severe, dependence: Status: Acute Code(s): F10.20 - Alcohol dependence, uncomplicated Assessment and Plan: Discussed risks of precipitated withdrawal with starting Naltrexone. Patient verbalized understanding and is aware of risks. States he has not used any opiates since prior to admission (he was just admitted yesterday). Encouraged patient to start at a much lower dose to ensure withdrawal does not occur Patient provided information for [facility] in [place] (per his request)--he was scheduling an appt when this magazine writer left harm reduction discussion (2) Opioid use disorder: Status: Acute Code(s): F11.99 - Opioid use, unspecified with unspecified opioid-induced disorder Assessment and Plan: Declined bup or methadone--prefers naltrexone Risk reduction discussion take home narcan provided case discussed with RS RN who followed up and provided additional resources to patient 40 mins with patient, coordinating care Greater than 50% of the session was spent on counseling and/or coordination of care PMFSH Past Medical History Medical History (Updated 04/30/21 @ 15:07 by Robyn Reyez CNP) Anxiety H/O alcohol abuse History of opiate therapy Withdrawal seizures Surgical History Surgical History (Updated 04/29/21 @ 10:40 by Yamil Mullen MD) No significant past surgical history Social History Social History Household Members: None Household Members Other:: 0 Housing: Apartment Do you presently have visiting nurse or other home services: No Alcohol intake: current Alcohol intake frequency: 3 or more drinks per day Alcohol type: hard liquor Patient Tobacco Use Status: Current everyday Tobacco user Tobacco use type: Cigarette Cigarette Packs Per Day: 1 Cigarettes Per Day: 20.0 e-Cigarette/Vaping Use: Never Used Second Hand Smoke Exposure: Yes Substance Use Type: Crack/Cocaine and Opiates service: No Current occupational status: unemployed
== END 2021-04-30 13:01 | disposition home or self-care (01) | DRG 425 ==
LOC: HO.ED 09:33 → HO.EDOVER 09:34 → HO.ISO 10:28
PROVIDERS: Student in an Organized Health Care Education/Training Program; Admitting Provider Family Medicine; Emergency Provider Internal Medicine; Visit Provider Nurse Practitioner Acute Care
DX: E87.5 Hyperkalemia (principal); F10.230 Alcohol dependence with withdrawal, uncomplicated; F17.210 Nicotine dependence, cigarettes, uncomplicated; R74.01 Elevation of levels of liver transaminase levels; Z20.822 Contact with and (suspected) exposure to COVID-19; Z71.6 Tobacco abuse counseling; Z79.899 Other long term (current) drug therapy
CPT/HCPCS: 36415; 80048; 80053; 80076; 80307; 81003; 82077; 83735; 84100; 85025; 87635; 93005; 96361; 96372; 96374; 96375; 96376; 99219; 99285; J1650; J2060; J2560

== ENCOUNTER 2023-02-12 16:17 | Emergency (ER) | payer MEDICAID, SELFPAY ==
--- NOTE | ~2023-02-12 | CT_ITS ---
EXAMINATION: CT ABDOMEN AND PELVIS WITHOUT CONTRAST CLINICAL INFORMATION: Left flank pain. Left upper abdominal pain. COMPARISON: None available. TECHNIQUE: Multidetector volumetric imaging was performed from the superior aspect of the liver through the pubic symphysis. Sagittal and coronal reformatted images were obtained on the technologist's workstation. This CT examination was performed using dose optimization techniques as appropriate, variously including the following: *Automated exposure control *Adjustment of mA and/or kV according to patient size (this includes techniques or standardized protocols for targeted exams where dose is matched to indication/reason for exam; i.e. extremities or head) *Use of iterative reconstruction technique DLP: 313 mGy-cm FINDINGS: LUNG BASES: The visualized lung bases are unremarkable. LIVER, GALLBLADDER, AND BILIARY TREE: The liver is normal in size.. Slightly low attenuation of the parenchyma suggesting hepatic steatosis. No focal hepatic lesion or biliary ductal dilatation is present. The gallbladder is unremarkable with no evidence of radiopaque gallstones, gallbladder wall thickening, or obvious pericholecystic inflammatory changes. PANCREAS: Unremarkable. No inflammatory changes. SPLEEN: Unremarkable. ADRENAL GLANDS: Unremarkable. KIDNEYS AND URETERS: The kidneys are normal in size, shape, and attenuation. No hydronephrosis, hydroureter, or calculi seen. No perinephric stranding. BLADDER: Nondistended, precluding evaluation. GASTROINTESTINAL TRACT: Stomach is partially distended. No small or large bowel obstruction. No significant bowel inflammatory changes evident. Normal appendix. ABDOMINAL WALL: No significant hernia is appreciated. LYMPH NODES: No pathologically enlarged lymph nodes VASCULAR: Unremarkable. PELVIC VISCERA: Unremarkable. OSSEOUS STRUCTURES: No acute or suspicious osseous abnormality.. CT/CT abdomen pelvis wo IV con IMPRESSION: 1. No acute intra-abdominal findings identified by CT. 2. No renal calculi. No hydronephrosis. 3. Hepatic steatosis. Fleischner guidelines were followed.
[2023-02-12 16:20] VITALS: BP 118/86; PULSE 85; RESP 20; TEMP 36.8; O2SAT 98; BMI 18.5
--- NOTE | 2023-02-12 16:22 | ED_ITS ---
HPI - General Adult General Chief complaint: Urogenital-Male Stated complaint: abd pain Time Seen by Provider: 02/12/23 16:45 History of Present Illness HPI narrative: patient with 2 complaints 1st complaint is left upper abdominal pain going on for a month which sometimes wakes him from sleep, he does admit to intermittent heavy drinking, he says he is trying to quit and has not had a drink in several days He denies any nausea or vomiting has no fever, he denies dysuria or discharge His 2nd complaint is he did have a chlamydia exposure and wants to be sure that that is treated and cured, he wonders if his left upper abdominal pain, there is no right upper quadrant pain, could be related, he denies any other lesions or sores no testicular swelling no other complaints Related Data Previous Rx's Medication Instructions Recorded naltrexone microspheres 380 mg 380 mg IM Q4W 30 days #1 ea 12/31/20 intramuscular suspension,extended release (Vivitrol) folic acid 1 mg tablet 1 mg PO DAILY #30 tabs 04/30/21 naltrexone 50 mg tablet 50 mg PO DAILY #30 tabs 04/30/21 thiamine mononitrate (vit B1) 100 100 mg PO DAILY #30 tabs 04/30/21 mg tablet doxycycline hyclate 100 mg capsule 100 mg PO BID 7 days #14 caps 02/12/23 Allergies Allergy/AdvReac Type Severity Reaction Status Date / Time No Known Allergies Allergy Verified 02/06/21 11:08 [facility] Past Medical History Source: nursing notes reviewed Medical History (Updated 02/12/23 @ 19:00 by TAN Rico) Anxiety H/O alcohol abuse History of opiate therapy Withdrawal seizures Surgical History (Updated 04/29/21 @ 10:40 by Yamil Mullen MD) No significant past surgical history Social History Social History Household Members: None Household Members Other:: 0 Housing: Apartment Do you presently have visiting nurse or other home services: No Alcohol intake: current Alcohol intake frequency: 3 or more drinks per day Alcohol type: hard liquor Patient Tobacco Use Status: Current everyday Tobacco user Tobacco use type: Cigarette Cigarette Packs Per Day: 1 Cigarettes Per Day: 20.0 e-Cigarette/Vaping Use: Never Used Second Hand Smoke Exposure: Yes Substance Use Type: Crack/Cocaine and Opiates Advance Directives: No Advance Directives Information Provided: No service: No Current occupational status: unemployed Physical Exam ED Vital Signs: Vital Signs - 24 hr 02/12/23 16:20 02/12/23 17:29 Temperature 98.3 F 98.2 F Pulse Rate 85 72 Respiratory Rate 20 16 Blood Pressure 118/86 103/77 Pulse Oximetry 98 98 Oxygen Delivery Method Room Air Room Air BMI result Body Mass Index 18.5 general appearance very comfortable no acute distress Eyes are anicteric no pallor The pharynx is clear without redness swelling or exudate Neck is supple Chest is clear to auscultation bilateral Heart no murmur Abdomen had left upper quadrant tenderness no rebound no guarding, but tenderness was reproducible, there was no other tenderness in the abdomen Extremities full range of motion x4 Skin no rash Genital exam was deferred Course Course Course Narrative: This is an RME: Additional HPI, ROS, PE not included below will be deferred to primary provider. 27 yo M presents w/ sevre LLQ pain non radiating X few days and would like STD testing partner + for chlamydia. Labs CBCl Plan- images, ua, labs labs were nondiagnostic including CBC chemistry and urinalysis CT was normal with no acute or emergent findings Patient left from the emergency room prior to discharge I did send his doxycycline prescription to [facility], and did try to call him and I did leave a message on his machine but not to able to speak to him personally to informal neck there were no acute findings on results her exam and that his prescription is waiting at the [facility] Medications Administered Discontinued Medications Generic Name Dose Route Start Last Admin Trade Name Vianca PRN Reason Stop Dose Admin Ceftriaxone Sodium 500 mg 02/12/23 16:20 02/12/23 18:16 Ceftriaxone Sodium 500 Mg Vial IM 02/12/23 16:21 500 mg ONCE ONE Administration Doxycycline Monohydrate 100 mg 02/12/23 16:20 02/12/23 18:16 Doxycycline Monohydrate 100 Mg Capsule PO 02/12/23 16:21 100 mg ONCE ONE Administration Medical Decision Making Lab Data 02/12/23 16:38 02/12/23 17:12 Labs: Lab Results 02/12/23 02/12/23 02/12/23 Range/Units 16:38 16:38 16:38 WBC 8.0 (4.8-10.8) X10*3/uL RBC 4.08 L (4.60-5.80) X10*6/uL Hgb 14.7 (14.0-18.0) g/dl Hct 41.4 L (42.0-52.0) % MCV 101.5 H (80.0-98.0) fL MCH 36.0 H (27.0-33.0) pg MCHC 35.5 (31.0-36.0) g/dl RDW 11.0 (11.0-16.0) % Plt Count 341 (160-400) X10*3/uL MPV 9.4 (9.4-12.4) fL Immature Gran % (Auto) 0.2 (0.0-0.4) % Neut % (Auto) 55.2 (45-73) % Lymph % (Auto) 34.5 (20-40) % [place] % (Auto) 7.0 (2-11) % Eos % (Auto) 1.1 (0-4) % Baso % (Auto) 2.0 (0-2) % Lymph # (Auto) 2.8 (1.2-4.9) X10*3/uL [place] # (Auto) 0.6 (0.1-1.2) X10*3/uL Eos # (Auto) 0.1 (0.0-0.4) X10*3/uL Baso # (Auto) 0.2 (0.0-0.2) X10*3/uL Abs Immat Gran (auto) 0.02 (0.00-0.03) X10*3/uL Absolute Neuts (auto) 4.4 (2.0-8.3) x10*3/uL Absolute Nucleated RBC 0.000 (0.0-0.012) X10*3/uL Nucleated RBC % (auto) 0.0 (0.0-0.2) /100WBC Sodium (135-145) mmol/L Potassium (3.3-5.1) mmol/L Chloride (96-108) mmol/L Carbon Dioxide (22-29) mmol/L Anion Gap (12-20) BUN (9-16) mg/dL Creatinine (0.5-1.4) mg/dL Estim Creat Clear Calc Estimated GFR Random Glucose (60-115) mg/dL Calcium (8.4-10.2) mg/dL Magnesium (1.6-2.6) mg/dL Total Bilirubin (0.0-1.0) mg/dL AST (5-37) U/L ALT (0-40) U/L Alkaline Phosphatase (39-117) U/L Total Protein (6.5-8.0) g/dL Albumin (3.5-5.0) g/dL Lipase (8-78) U/L Urine Color Yellow Urine Appearance Clear Urine pH 7.0 (5.0-9.0) Ur Specific [place] <= 1.005 (1.005-1.025) Urine Protein Negative (Neg-Trace) mg/dL Urine Glucose (UA) Negative (Negative) mg/dL Urine Ketones Negative (Negative) mg/dL Urine Blood Negative (Negative) Urine Nitrite Negative (Negative) Ur Leukocyte Esterase Negative (Negative) Chlam trachomat DNA PCR (Not Detect.) COVID-19 ([facility]) Negative (Negative) COVID-19 Clin Com See Note N.gonorrhoeae DNA (PCR) (Not Detect.) 02/12/23 02/12/23 02/12/23 Range/Units 16:38 17:12 17:12 WBC (4.8-10.8) X10*3/uL RBC (4.60-5.80) X10*6/uL Hgb (14.0-18.0) g/dl Hct (42.0-52.0) % MCV (80.0-98.0) fL MCH (27.0-33.0) pg MCHC (31.0-36.0) g/dl RDW (11.0-16.0) % Plt Count (160-400) X10*3/uL MPV (9.4-12.4) fL Immature Gran % (Auto) (0.0-0.4) % Neut % (Auto) (45-73) % Lymph % (Auto) (20-40) % [place] % (Auto) (2-11) % Eos % (Auto) (0-4) % Baso % (Auto) (0-2) % Lymph # (Auto) (1.2-4.9) X10*3/uL [place] # (Auto) (0.1-1.2) X10*3/uL Eos # (Auto) (0.0-0.4) X10*3/uL Baso # (Auto) (0.0-0.2) X10*3/uL Abs Immat Gran (auto) (0.00-0.03) X10*3/uL Absolute Neuts (auto) (2.0-8.3) x10*3/uL Absolute Nucleated RBC (0.0-0.012) X10*3/uL Nucleated RBC % (auto) (0.0-0.2) /100WBC Sodium 146 H (135-145) mmol/L Potassium 3.1 L D (3.3-5.1) mmol/L Chloride 111 H (96-108) mmol/L Carbon Dioxide 22 (22-29) mmol/L Anion Gap 16 (12-20) BUN 5 L (9-16) mg/dL Creatinine 0.69 (0.5-1.4) mg/dL Estim Creat Clear Calc 128.9 Estimated GFR > 60 Random Glucose 84 (60-115) mg/dL Calcium 9.7 D (8.4-10.2) mg/dL Magnesium 2.0 (1.6-2.6) mg/dL Total Bilirubin 0.4 (0.0-1.0) mg/dL AST 37 (5-37) U/L ALT 30 (0-40) U/L Alkaline Phosphatase 82 (39-117) U/L Total Protein 7.4 (6.5-8.0) g/dL Albumin 4.5 (3.5-5.0) g/dL Lipase 27 (8-78) U/L Urine Color Urine Appearance Urine pH (5.0-9.0) Ur Specific [place] (1.005-1.025) Urine Protein (Neg-Trace) mg/dL Urine Glucose (UA) (Negative) mg/dL Urine Ketones (Negative) mg/dL Urine Blood (Negative) Urine Nitrite (Negative) Ur Leukocyte Esterase (Negative) Chlam trachomat DNA PCR NOT DETECTED (Not Detect.) COVID-19 ([facility]) (Negative) COVID-19 Clin Com N.gonorrhoeae DNA (PCR) NOT DETECTED (Not Detect.) Discharge Plan Discharge Clinical Impression: Exposure to STD Patient Disposition: Elopement Prescriptions: New doxycycline hyclate 100 mg capsule 100 mg PO BID 7 Days Qty: 14 0RF No Action Vivitrol 380 mg suspension,extended rel recon 380 mg IM Q4W 30 Days Qty: 1 5RF folic acid 1 mg Tablet 1 mg PO DAILY Qty: 30 0RF thiamine mononitrate (vit B1) 100 mg Tablet 100 mg PO DAILY Qty: 30 0RF naltrexone 50 mg tablet 50 mg PO DAILY Qty: 30 0RF
[2023-02-12 16:44] LABS: MANUAL DIFF FLAG NO
[2023-02-12 16:48] LABS: Appearance Urine Clear; Color Urine Yellow; Glucose Urine UA Negative (Negative); Leukocyte Esterase Urine Negative (Negative); Nitrite Urine Negative (Negative); Specific Gravity - Urine <= 1.005 (1.005-1.025); Urine Blood Negative (Negative); Urine Ketones Negative (Negative); Urine Protein Negative (Neg-Trace)
[2023-02-12 16:50] LABS: Basophils Absolute Auto 0.2 X10*3/uL (0.0-0.2); Eosinophils Absolute Auto 0.1 X10*3/uL (0.0-0.4); Eosinophils Percent Auto 1.1 % (0-4); Hematocrit 41.4 % (42.0-52.0); Hemoglobin 14.7 g/dl (14.0-18.0); Imm Gran Abs Auto 0.02 X10*3/uL (0.00-0.03); Imm Gran Pct Auto 0.2 % (0.0-0.4); Lymphocytes Absolute Auto 2.8 X10*3/uL (1.2-4.9); Lymphocytes Percent Auto 34.5 % (20-40); Mean Corpuscular HGB Conc 35.5 g/dl (31.0-36.0); Mean Corpuscular Volume 101.5 fL (80.0-98.0); Mean Platelet Volume 9.4 fL (9.4-12.4); Monocytes Absolute Auto 0.6 X10*3/uL (0.1-1.2); Neutrophils Absolute Auto 4.4 x10*3/uL (2.0-8.3); Neutrophils Percent Auto 55.2 % (45-73); Platelet Count 341 X10*3/uL (160-400); Red Blood Count 4.08 X10*6/uL (4.60-5.80)
[2023-02-12 17:28] LABS: COVID-19 Test Negative (Negative); IDNOW Serial# 6674DD1D
[2023-02-12 17:29] VITALS: BP 103/77; PULSE 72; RESP 16; TEMP 36.8; O2SAT 98
[2023-02-12 17:32] LABS: Lipase 27 U/L (8-78)
[2023-02-12 17:34] LABS: Alanine Aminotransferase 30 U/L (0-40); Albumin Level 4.5 g/dL (3.5-5.0); Alkaline Phosphatase 82 U/L (39-117); Anion Gap 16 (12-20); Aspartate Amino Transferase 37 U/L (5-37); Bilirubin Total 0.4 mg/dL (0.0-1.0); Blood Urea Nitrogen 5 mg/dL (9-16); Calcium 9.7 mg/dL (8.4-10.2); Carbon Dioxide 22 mmol/L (22-29); Chloride 111 mmol/L (96-108); Creatinine Clr Calc Pharmacy 128.9; Estimated Glomerular Filt Rate > 60; Glucose Random 84 mg/dL (60-115); Potassium 3.1 mmol/L (3.3-5.1); Sodium 146 mmol/L (135-145); Total Protein 7.4 g/dL (6.5-8.0)
[2023-02-12] MEDS: cefTRIAXone sodium 500 MG VIAL IM (18:16)
[2023-02-12] MEDS: Doxycycline Monohydrate 100 MG CAPSULE PO (18:16)
[2023-02-12 18:44] LABS: CT PCR NOT DETECTED (Not Detect.); NG PCR NOT DETECTED (Not Detect.)
== END 2023-02-12 19:01 | disposition left against medical advice (07) ==
PROVIDERS: Physician Assistant; Physician Assistant Medical; Emergency Provider Student in an Organized Health Care Education/Training Program; PCP Family Medicine
DX: Z20.2 Contact with and (suspected) exposure to infections with a predominantly sexual mode of transmission (principal); R10.12 Left upper quadrant pain; Z20.822 Contact with and (suspected) exposure to COVID-19
CPT/HCPCS: 0353U; 36415; 74176; 80053; 81003; 83690; 83735; 85025; 87635; 96372; 99283; 99284; J0696

== ENCOUNTER 2023-04-23 07:23 | Emergency (ER) | payer MEDICAID, SELFPAY ==
--- NOTE | ~2023-04-23 | CT_ITS ---
EXAMINATION: CT CHEST, ABDOMEN AND PELVIS WITH IV CONTRAST CLINICAL INDICATION: Left upper quadrant pain and left rib pain post fall. COMPARISON: CT abdomen and pelvis with IV contrast 02/12/2023. TECHNIQUE: 5 mm thin axial and reformatted 3 mm thin sagittal and coronal images of chest, abdomen and pelvis were obtained following IV 85 mL Omnipaque 350. DLP: 169 mGy-cm This CT examination was performed using dose optimization technique as appropriate, variously including the following: Automated exposure control Adjustment of MA and/or KV according to patient size(this includes techniques or standardized protocols for targeted exams where dose is matched to indication/reason for exam; extremities or head. Use of iterative reconstruction techniques. FINDINGS: CHEST: Lungs: The lungs are hyperinflated clear acute pneumonic process. There are no pulmonary nodules, mass or consolidation. Mediastinum: Heart size and the great vessels are normal caliber. There is three-vessel branching of the arch. The thyroid lobes are symmetric and normal. The central trachea and bronchi are widely patent. No abnormal-sized mediastinal or hilar lymph node seen. There is no pericardial effusion. No coronary artery calcifications present. Pleura: There is no pleural effusion, pneumothorax or thickening. Axilla: No abnormal-sized axillary lymph node seen. The chest wall is unremarkable. Osseous structures: There is a right anterior 5th rib fracture with callus formation. There are healing fractures left lateral 9th/10th ribs. No acute fracture seen. ABDOMEN AND PELVIS: Liver, ducts and gallbladder: The liver is normal size, contour and diffusely hypodense. Since the last CT exam 02/12/2023 patient has developed a right subhepatic complex collection likely hematoma. It measures 12.4 x 5.2 x 5.5 cm. It measures between 35-45 Hounsfield units. Rest of the liver is unremarkable. No radiopaque gallstone seen. There is no intrahepatic ductal dilatation. The CBD is normal caliber. Spleen: Unremarkable. Pancreas: Unremarkable. Adrenal glands: Unremarkable. Kidneys and ureters: There are bilateral symmetrical-sized kidneys which are normal size and shape and position. No radiopaque renal calculi or hydronephrosis seen. There is no perinephric stranding or fluid collection. GI tract: There is scattered stool and gas seen in the colon without any distention. The small bowel loops are normal caliber. Appendix is not visualized with certainty. The stomach is nondistended and appears unremarkable. No free air or free fluid seen. Lymphovascular structures: The abdominal aorta is normal caliber. No retrocrural lymph node or mass seen. Abdominal wall: Unremarkable. Pelvis: The bladder is nondistended and appears unremarkable. The prostate gland is normal. Osseous structures: No acute fracture or dislocation seen. CT/CT abdomen pelvis w IV con IMPRESSION: Moderate to large subhepatic collection measuring 12.4 cm in maximum dimension. This most likely is a seroma/hematoma, given the recent history of trauma. Recommend ultrasound correlation. Bilateral old healing rib fractures. No pneumothorax or pleural effusion. Results were discussed and made aware of the findings with ER physician/PA by phone at 10:20 AM.
[2023-04-23 07:36] VITALS: BP 125/93; PULSE 106; RESP 18; TEMP 36.8; O2SAT 98; BMI 18.7
[2023-04-23 07:41] VITALS: PULSE 106
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
[2023-04-23 08:17] LABS: MANUAL DIFF FLAG NO
[2023-04-23 08:21] LABS: Basophils Absolute Auto 0.1 X10*3/uL (0.0-0.2); Basophils Percent Auto 1.2 % (0-2); Eosinophils Percent Auto 0.3 % (0-4); Hematocrit 40.9 % (42.0-52.0); Hemoglobin 14.3 g/dl (14.0-18.0); Imm Gran Abs Auto 0.02 X10*3/uL (0.00-0.03); Imm Gran Pct Auto 0.2 % (0.0-0.4); Lymphocytes Absolute Auto 1.7 X10*3/uL (1.2-4.9); Lymphocytes Percent Auto 18.3 % (20-40); Mean Corpuscular Hemoglobin 35.4 pg (27.0-33.0); Mean Corpuscular Volume 101.2 fL (80.0-98.0); Mean Platelet Volume 9.1 fL (9.4-12.4); Monocytes Absolute Auto 0.5 X10*3/uL (0.1-1.2); Monocytes Percent Auto 5.5 % (2-11); Neutrophils Absolute Auto 6.9 x10*3/uL (2.0-8.3); Neutrophils Percent Auto 74.5 % (45-73); Platelet Count 191 X10*3/uL (160-400); Red Blood Count 4.04 X10*6/uL (4.60-5.80); White Blood Count 9.2 X10*3/uL (4.8-10.8)
[2023-04-23 08:26] LABS: INTERNATIONAL NORM RATIO 0.9 (0.9-1.1)
[2023-04-23] MEDS: 0.9 % Sodium Chloride 1,000 ML 999 ML IVCONT (08:30)
[2023-04-23] MEDS: ondansetron HCL 4 MG/2 ML VIAL IVPUSH (08:36)
[2023-04-23] MEDS: Thiamine HCL 200 MG in 0.9 % Sodium Chloride 100 ML 204 MG IV (08:36)
[2023-04-23 09:12] LABS: Alanine Aminotransferase 36 U/L (0-40); Albumin Level 4.2 g/dL (3.5-5.0); Alkaline Phosphatase 127 U/L (39-117); Anion Gap 18 (12-20); Aspartate Amino Transferase 77 U/L (5-37); Bilirubin Direct 0.2 mg/dL (0.0-0.5); Bilirubin Total 0.5 mg/dL (0.0-1.0); Blood Urea Nitrogen 13 mg/dL (9-16); Calcium 9.1 mg/dL (8.4-10.2); Carbon Dioxide 22 mmol/L (22-29); Chloride 108 mmol/L (96-108); Creatinine Clr Calc Pharmacy 128.5; Estimated Glomerular Filt Rate > 60; Ethanol 209 mg/dL; Glucose Random 74 mg/dL (60-115); Lipase 32 U/L (8-78); Magnesium 1.9 mg/dL (1.6-2.6); Potassium 4.1 mmol/L (3.3-5.1); Sodium 144 mmol/L (135-145); Total Protein 7.1 g/dL (6.5-8.0)
[2023-04-23] MEDS: iohexoL 350 MG/ML 100 ML INFUS..BTL 85 ML IV (09:48)
[2023-04-23] MEDS: PHENobarbitaL sodium 130 MG/ML VIAL 236 MG IVPUSH (09:48)
[2023-04-23 09:49] VITALS: BP 123/74; PULSE 90; RESP 18; O2SAT 99
--- NOTE | 2023-04-23 10:47 | MHC.EDTECH ---
[facility] transfer line @ 10:48 for brian Malone
--- NOTE | 2023-04-23 11:15 | MHC.EDTECH ---
PAYAL Prieto @ [facility] called back to speak with Kira
[2023-04-23 11:36] LABS: COVID-19 Test Negative (Negative); IDNOW Serial# 55D5AD1C
[2023-04-23] MEDS: Magnesium Sulfate/H2O 2 GM/50 ML PIGGYBACK IV (11:45)
== END 2023-04-23 12:26 | disposition short-term general hospital (02) ==
PROVIDERS: Physician Assistant; Emergency Provider Emergency Medicine; PCP Family Medicine
DX: S36.112A Contusion of liver, initial encounter (principal); W01.198A Fall on same level from slipping, tripping and stumbling with subsequent striking against other object, initial encounter; F10.120 Alcohol abuse with intoxication, uncomplicated; Y90.7 Blood alcohol level of 200-239 mg/100 ml; R10.11 Right upper quadrant pain; R07.81 Pleurodynia; F41.9 Anxiety disorder, unspecified; Z20.822 Contact with and (suspected) exposure to COVID-19; F17.210 Nicotine dependence, cigarettes, uncomplicated; Y93.9 Activity, unspecified; Y92.9 Unspecified place or not applicable; Y99.9 Unspecified external cause status; Z79.899 Other long term (current) drug therapy
CPT/HCPCS: 36415; 71260; 74177; 80048; 80076; 80307; 83690; 83735; 85025; 85610; 86850; 86900; 86901; 87635; 96361; 96365; 96366; 96375; 99285; J2405; J2560; J3411; J3475; Q9967